=== PATIENT | male | born 1995 | race Caucasian/White ===

== ENCOUNTER 2017-01-27 02:44 | Inpatient (IN) | payer BC ==
[~2017-01-27] VITALS: Ht 177.8 cm; Wt 79.0 kg
[~2017-01-27 02:44] MED LIST: LEVO1TAB35 PO
[2017-01-27] MEDS ORDERED: VANCOMYCIN INJ 2,000 MG in SODIUM CHLORIDE 0.9% 500ML 500 ML IV STA (03:02)
[2017-01-27] MEDS ORDERED: SODIUM CHLORIDE 0.9% 1000ML 2,000 ML IV STA (03:02)
[2017-01-27] MEDS ORDERED: CEFTRIAXONE SOD INJ 1 GM ADDVIAL IV STA (03:05)
[2017-01-27] MEDS ORDERED: ACETAMINOPHEN 500 MG TAB PO STA (03:16)
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
[2017-01-27 03:27] LABS: HEMATOCRIT 41.7 % (42-52); MEAN CELL VOLUME 88.3 fL (80-100); MEAN CORPUSCULAR HEMOGLOBIN 30.5 pg (25-34); MEAN CORPUSCULAR HGB CONC 34.5 g/dl (32-36); MEAN PLATELET VOLUME 10.1 fL (7.4-10.4); PLATELET COUNT 406 K/uL (130-400); RED BLOOD COUNT 4.72 M/uL (4.7-6.1); WHITE BLOOD COUNT 20.18 K/uL (4.8-10.8)
[2017-01-27 03:34] LABS: INR 1.1 (0.9-1.1); PROTHROMBIN TIME (PATIENT) 11.5 SECONDS (9.0-12.0)
[2017-01-27 03:44] LABS: BUN/CREATININE RATIO 11.3 (10-20); CALCIUM 8.8 mg/dl (8.5-10.1); CREATININE 0.94 mg/dl (0.60-1.40); POTASSIUM 3.6 mmol/L (3.5-5.1)
[2017-01-27 03:47] LABS: C-REACTIVE PROTEIN 8.74 mg/dl (0-0.29)
[2017-01-27 03:54] LABS: BASO % 0.2 %; BASO ABS # 0.04 K/uL (0-0.2); COMPLETE YES; EOS % 0.2 %; IG% 0.5 %; LYMPH % 10.3 %; LYMPH ABS # 2.08 K/uL (1.2-3.4); MONO % 17.1 %; NEUT % 71.7 %
[2017-01-27] MEDS ORDERED: MAGNESIUM HYDROXIDE SUSP 30 ML UDC PO PRN (04:00)
[2017-01-27] MEDS ORDERED: ONDANSETRON INJ 2 MG/ML 2 ML VIAL IV PRN (04:00)
[2017-01-27] MEDS ORDERED: ALUMINUM/MAGNESIUM/SIMETH (MAALOX MAX) 30 ML UDC PO PRN (04:00)
[2017-01-27] MEDS ORDERED: ZOLPIDEM TARTRATE 5 MG TAB PO PRN (04:00)
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
[2017-01-27 04:30] VITALS: BP 120/72; PULSE 107; TEMP 38; O2SAT 96; Ht 177.8 cm; Wt 79.0 kg
[2017-01-27] MEDS ORDERED: POLYETHYLENE (MIRALAX) 17 GM PACK PO PRN (05:30)
[2017-01-27] MEDS ORDERED: VANCOMYCIN CONSULT ACTIVE PRN (05:30)
[2017-01-27] MEDS: AZITHROMYCIN IV 500 MG in DEXTROSE 5% 250ML 250 ML IV SCH (05:38)
[2017-01-27] MEDS: HEPARIN SOD 5000 UNIT/0.5 ML CARP SQ SCH ×3 (05:39→21:54)
--- NOTE | 2017-01-27 07:24 | DIAGNOSTIC IMAGING REPORT ---
SINGLE VIEW CHEST CLINICAL HISTORY: Fever. Sepsis. FINDINGS: 2 AP, portable, upright chest radiographs are obtained. No prior studies are available for comparison at the time of dictation. The examination is degraded by portable technique and patient rotation. The cardiomediastinal silhouette is unremarkable. The lungs and pleural spaces are clear. No pneumothorax is seen. The bony thorax is grossly intact. IMPRESSION: No acute cardiopulmonary abnormality. Electronically signed by: Raphael Gardiner M.D. 01/27/2017 7:23 AM Dictated Date/Time: 01/27/2017 7:22 AM
[2017-01-27 07:26] VITALS: BP 111/67; PULSE 88; TEMP 36.7; O2SAT 97
[2017-01-27] MEDS ORDERED: INFLUENZA VIRUS QUAD VACCINE 0.5 ML SYR IM. ONE (08:00)
[2017-01-27] MEDS ORDERED: INFLUENZA ADMINISTRATION CHARGE ONE (08:00)
[2017-01-27 08:41] LABS: MEAN CELL VOLUME 88.1 fL (80-100); MEAN CORPUSCULAR HEMOGLOBIN 30.2 pg (25-34); MEAN CORPUSCULAR HGB CONC 34.3 g/dl (32-36); MEAN PLATELET VOLUME 9.6 fL (7.4-10.4); PLATELET COUNT 353 K/uL (130-400); WHITE BLOOD COUNT 16.58 K/uL (4.8-10.8)
[2017-01-27 09:00] LABS: BLOOD UREA NITROGEN 8 mg/dl (7-18); BUN/CREATININE RATIO 10.8 (10-20); CALCIUM 8.3 mg/dl (8.5-10.1); CARBON DIOXIDE 23 mmol/L (21-32); CHLORIDE 108 mmol/L (98-107); CREATININE 0.74 mg/dl (0.60-1.40); GLUCOSE 91 mg/dl (70-99); POTASSIUM 3.8 mmol/L (3.5-5.1); SODIUM 138 mmol/L (136-145)
[2017-01-27] MEDS ORDERED: VANCOMYCIN INJ 1,000 MG in SODIUM CHLORIDE 0.9% 250ML 250 ML IV SCH (09:00)
--- NOTE | 2017-01-27 09:12 | Pharmacy Progress Note ---
Pharmacy Antibiotic Consult Date of Service: Jan 27, 2017. Pharmacy Dosing Scope Pharmacy is consulted to initiate vancomycin IV dosing therapy, order appropriate labs and adjust drug dose/frequency. Subjective The patient is a 21 year old male admitted on Jan 27, 2017 at 03:48. Objective Height (Feet): 5 Height (Inches): 10.00 Weight (Kilograms): 79.000 Lab Results (24hrs): Test 01/27/17 03:14 01/27/17 03:17 01/27/17 03:52 01/27/17 08:24 Bedside Lactic Acid Venous 0.93 mmol/L (0.90-1.70) White Blood Count 20.18 K/uL (4.8-10.8) 16.58 K/uL (4.8-10.8) Red Blood Count 4.72 M/uL (4.7-6.1) 4.20 M/uL (4.7-6.1) Hemoglobin 14.4 g/dL (14.0-18.0) 12.7 g/dL (14.0-18.0) Hematocrit 41.7 % (42-52) 37.0 % (42-52) Mean Corpuscular Volume 88.3 fL (80-100) 88.1 fL (80-100) Mean Corpuscular Hemoglobin 30.5 pg (25-34) 30.2 pg (25-34) Mean Corpuscular Hemoglobin Concent 34.5 g/dl (32-36) 34.3 g/dl (32-36) Platelet Count 406 K/uL (130-400) 353 K/uL (130-400) Mean Platelet Volume 10.1 fL (7.4-10.4) 9.6 fL (7.4-10.4) Neutrophils (%) (Auto) 71.7 % Lymphocytes (%) (Auto) 10.3 % Monocytes (%) (Auto) 17.1 % Eosinophils (%) (Auto) 0.2 % Basophils (%) (Auto) 0.2 % Neutrophils # (Auto) 14.46 K/uL (1.4-6.5) Lymphocytes # (Auto) 2.08 K/uL (1.2-3.4) Monocytes # (Auto) 3.46 K/uL (0.11-0.59) Eosinophils # (Auto) 0.04 K/uL (0-0.5) Basophils # (Auto) 0.04 K/uL (0-0.2) RDW Standard Deviation 46.3 fL (36.4-46.3) 46.7 fL (36.4-46.3) RDW Coefficient of Variation 14.2 % (11.5-14.5) 14.5 % (11.5-14.5) Immature Granulocyte % (Auto) 0.5 % Immature Granulocyte # (Auto) 0.10 K/uL (0.00-0.02) Prothrombin Time 11.5 SECONDS (9.0-12.0) Prothromb Time International Ratio 1.1 (0.9-1.1) Sodium Level 134 mmol/L (136-145) 138 mmol/L (136-145) Potassium Level 3.6 mmol/L (3.5-5.1) 3.8 mmol/L (3.5-5.1) Chloride Level 102 mmol/L (98-107) 108 mmol/L (98-107) Carbon Dioxide Level 24 mmol/L (21-32) 23 mmol/L (21-32) Anion Gap 8.0 mmol/L (3-11) 7.0 mmol/L (3-11) Blood Urea Nitrogen 11 mg/dl (7-18) 8 mg/dl (7-18) Creatinine 0.94 mg/dl (0.60-1.40) 0.74 mg/dl (0.60-1.40) Est Creatinine Clear Calc Drug Dose 129.4 ml/min 164.4 ml/min Estimated GFR () 134.7 > 150.0 Estimated GFR (Non- 116.2 132.8 BUN/Creatinine Ratio 11.3 (10-20) 10.8 (10-20) Random Glucose 104 mg/dl (70-99) 91 mg/dl (70-99) Calcium Level 8.8 mg/dl (8.5-10.1) 8.3 mg/dl (8.5-10.1) Total Bilirubin 0.5 mg/dl (0.2-1) Direct Bilirubin 0.1 mg/dl (0-0.2) Aspartate Amino Transf (AST/SGOT) 16 U/L (15-37) Alanine Aminotransferase (ALT/SGPT) 22 U/L (12-78) Alkaline Phosphatase 146 U/L (45-117) C-Reactive Protein 8.74 mg/dl (0-0.29) Total Protein 8.4 gm/dl (6.4-8.2) Albumin 4.2 gm/dl (3.4-5.0) Procalcitonin 0.06 ng/ml (0-0.5) Influenza Type A Antigen Neg for Influ A (NEG) Influenza Type B Antigen Neg for Influ B (NEG) Magnesium Level 1.9 mg/dl (1.8-2.4) Monoscreen NEG (NEG) Micro Results: Item Value Date Time Blood Culture Received 01/27/17316 Blood Pending Blood Culture Received 01/27/17309 Blood Pending Assessment & Plan Pt admitted with worsening fever/chills and possible pneumonia. Had received about 2 days of levaquin prior to admission per H&P. Bc x 2 are pending. Vancomycin: * Pt received LD of vancomycin 2000 mg x 1 (~25 mg/kg) * Will start MD of vancomycin 1250 mg (~15 mg/kg) iv q 8 hrs to achieve an estimated trough ~15-20 mcg/ml (goal for pneumonia) * Estimated kinetics: t 1/2~7.9 hrs, ke~0.08 hr-1, CrCl ~129 ml/min; used max CrCl of 100 ml/min to calculate kinetics * Will plan to obtain a trough prior to the 1200 dose on 01/28 to ensure therapeutic Pharmacy will continue to follow and will adjust dose/frequency as necessary. Thank you
[2017-01-27] MEDS: VANCOMYCIN INJ 1,250 MG in SODIUM CHLORIDE 0.9% 250ML 250 ML IV SCH ×2 (12:15→19:50)
--- NOTE | 2017-01-27 13:17 | Family Medicine Progress Note ---
Progress Note Date of Service Jan 27, 2017. Subjective Pt evaluation today including: conversation w/ patient, physical exam, chart review, lab review, review of studies, review of inpatient medication list Pain: mild soar throat PO Intake: adequate Voiding: no voiding problems NO acute events overnight, Last fever was 4:30 Am at 38 degrees which has since resolved. Patient still reports ongoing nasal congestion byt denies SOB, CP, Abdominal pain, N/V, diarrhea. Pain controlled with tylenol Constitutional: + fever (resolved), No chills, No weakness ENT: + nasal symptoms, + problem reported (congestion) Respiratory: No cough, No sputum Cardiovascular: No chest pain, No palpitations Abdomen: No pain, No nausea, No vomiting, No diarrhea Male : No dysuria, No urinary frequency, No hematuria Heme: + swollen lymph nodes Skin: No rash, No itch, No new/changing skin lesions Medications Current Inpatient Medications Medications (Trade) Dose Ordered Sig/Juan Alberto Route Start Time Stop Time Status Last Admin Dose Admin Ceftriaxone Sodium 1 gm/ Dextrose 50 ml @ 100 mls/hr Q24H IV 01/28/17 06:00 02/04/17 05:59 Azithromycin 500 mg/Dextrose 255 ml @ 125 mls/hr DAILY@0800 IV 01/27/17 06:00 02/03/17 05:59 01/27/17 05:38 125 MLS/HR Heparin Sodium (Porcine) (Heparin Sq 5000 Unit/0.5ml) 5,000 unit Q8H SQ 01/27/17 06:00 02/26/17 05:59 01/27/17 05:39 5,000 UNIT Acetaminophen (Tylenol Tab) 650 mg Q4H PRN PO 01/27/17 04:00 02/26/17 03:59 Al Hydrox/Mg Hydrox/Simethicone (Maalox Max Susp) 15 ml Q4H PRN PO 01/27/17 04:00 02/26/17 03:59 Magnesium Hydroxide (Milk Of Magnesia Susp) 30 ml Q6H PRN PO 01/27/17 04:00 02/26/17 03:59 Polyethylene (Miralax Powder Packet) 17 gm DAILY PRN PO 01/27/17 05:30 02/26/17 05:29 Zolpidem Tartrate (Ambien Tab) 5 mg HSZ PRN PO 01/27/17 04:00 02/26/17 03:59 Ondansetron HCl (Zofran Inj) 4 mg Q6H PRN IV 01/27/17 04:00 02/26/17 03:59 Vancomycin HCl (Consult) 1 ea UD PRN N/A 01/27/17 05:30 02/26/17 05:29 Vancomycin HCl 1250 mg/Sodium Chloride 275 ml @ 125 mls/hr Q8H IV 01/27/17 12:00 02/03/17 11:59 01/27/17 19:50 125 MLS/HR Loratadine (Claritin Tab) 10 mg QAM PO 01/28/17 08:00 02/27/17 07:59 Dexamethasone Sodium Phosphate 2 mg/Syringe 0.5 ml @ 1 mls/min Q12@0200,1400 IV 01/27/17 14:15 02/26/17 14:14 01/27/17 14:23 1 MLS/MIN Menthol (Nice Ruby) 1 ruby PRN PRN PO 01/27/17 16:15 02/26/17 16:14 01/27/17 16:16 1 RUBY Objective Vital Signs Date Time Temp Pulse Resp B/P (MAP) Pulse Ox O2 Delivery O2 Flow Rate FiO2 01/27/17 16:00 Room Air 01/27/17 15:00 37.0 95 18 138/76 (96) 99 Room Air 01/27/17 10:00 Room Air 01/27/17 07:26 36.7 88 18 111/67 (82) 97 Room Air 01/27/17 04:30 38.0 107 18 120/72 96 Room Air 01/27/17 04:09 37.0 105 18 119/71 98 01/27/17 04:01 119/71 01/27/17 03:44 100 19 99 01/27/17 03:40 104 01/27/17 03:38 132/71 01/27/17 02:51 37.7 126 20 113/85 98 Room Air Physical Exam Notes: GENERAL: alert, well appearing, well nourished, no distress, non-toxic EYE EXAM: normal conjunctiva, PERRL and EOM's grossly intact OROPHARYNX: + erythema, kissing tonsils, lips, buccal mucosa, and tongue normal and mucous membranes are moist NECK: supple, no nuchal rigidity, Ant cervical lymphadenopathy, non-tender LUNGS: Clear to auscultation. Normal chest wall mechanics HEART: no murmurs, S1 normal and S2 normal ABDOMEN: abdomen soft, non-tender, normo-active bowel sounds, no masses, no rebound or guarding. SKIN: no rashes and no bruising UPPER EXTREMITIES: upper extremities are grossly normal. LOWER EXTREMITIES: No pitting edema. NEURO EXAM: Normal sensorium, cranial nerves II-XII grossly intact, normal speech, Laboratory Results Results Past 24 Hours Test 01/27/17 03:14 01/27/17 03:17 01/27/17 03:52 01/27/17 08:24 Range/Units Bedside Lactic Acid Venous 0.93 0.90-1.70 mmol/L White Blood Count 20.18 16.58 4.8-10.8 K/uL Red Blood Count 4.72 4.20 4.7-6.1 M/uL Hemoglobin 14.4 12.7 14.0-18.0 g/dL Hematocrit 41.7 37.0 42-52 % Mean Corpuscular Volume 88.3 88.1 80-100 fL Mean Corpuscular Hemoglobin 30.5 30.2 25-34 pg Mean Corpuscular Hemoglobin Concent 34.5 34.3 32-36 g/dl Platelet Count 406 353 130-400 K/uL Mean Platelet Volume 10.1 9.6 7.4-10.4 fL Neutrophils (%) (Auto) 71.7 % Lymphocytes (%) (Auto) 10.3 % Monocytes (%) (Auto) 17.1 % Eosinophils (%) (Auto) 0.2 % Basophils (%) (Auto) 0.2 % Neutrophils # (Auto) 14.46 1.4-6.5 K/uL Lymphocytes # (Auto) 2.08 1.2-3.4 K/uL Monocytes # (Auto) 3.46 0.11-0.59 K/uL Eosinophils # (Auto) 0.04 0-0.5 K/uL Basophils # (Auto) 0.04 0-0.2 K/uL RDW Standard Deviation 46.3 46.7 36.4-46.3 fL RDW Coefficient of Variation 14.2 14.5 11.5-14.5 % Immature Granulocyte % (Auto) 0.5 % Immature Granulocyte # (Auto) 0.10 0.00-0.02 K/uL Prothrombin Time 11.5 9.0-12.0 SECONDS Prothromb Time International Ratio 1.1 0.9-1.1 Sodium Level 134 138 136-145 mmol/L Potassium Level 3.6 3.8 3.5-5.1 mmol/L Chloride Level 102 108 98-107 mmol/L Carbon Dioxide Level 24 23 21-32 mmol/L Anion Gap 8.0 7.0 3-11 mmol/L Blood Urea Nitrogen 11 8 7-18 mg/dl Creatinine 0.94 0.74 0.60-1.40 mg/dl Est Creatinine Clear Calc Drug Dose 129.4 164.4 ml/min Estimated GFR () 134.7 > 150.0 Estimated GFR (Non- 116.2 132.8 BUN/Creatinine Ratio 11.3 10.8 10-20 Random Glucose 104 91 70-99 mg/dl Calcium Level 8.8 8.3 8.5-10.1 mg/dl Total Bilirubin 0.5 0.2-1 mg/dl Direct Bilirubin 0.1 0-0.2 mg/dl Aspartate Amino Transf (AST/SGOT) 16 15-37 U/L Alanine Aminotransferase (ALT/SGPT) 22 12-78 U/L Alkaline Phosphatase 146 45-117 U/L C-Reactive Protein 8.74 0-0.29 mg/dl Total Protein 8.4 6.4-8.2 gm/dl Albumin 4.2 3.4-5.0 gm/dl Procalcitonin 0.06 0-0.5 ng/ml Influenza Type A Antigen Neg for Influ A NEG Influenza Type B Antigen Neg for Influ B NEG Magnesium Level 1.9 1.8-2.4 mg/dl Monoscreen NEG NEG Test 01/27/17 14:10 Range/Units Urine Color YELLOW Urine Appearance CLEAR CLEAR Urine pH 7.0 4.5-7.5 Urine Specific [place] 1.009 1.000-1.030 Urine Protein NEG NEG Urine Glucose (UA) NEG NEG Urine Ketones NEG NEG Urine Occult Blood 2+ NEG Urine Nitrite NEG NEG Urine Bilirubin NEG NEG Urine Urobilinogen NEG NEG Urine Leukocyte Esterase NEG NEG Urine WBC (Auto) 0 0-5 /hpf Urine RBC (Auto) 10-30 0-4 /hpf Urine Hyaline Casts (Auto) 0 0-5 /lpf Urine Epithelial Cells (Auto) 0-5 0-5 /lpf Urine Bacteria (Auto) NEG NEG Microbiology Results 01/27/17 Blood Culture, Received Pending 01/27/17 Blood Culture, Received Pending Assessment and Plan 21 yo M w/ 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 Sepsis in the setting Upper respiratory infection: s/p failure of outpatient treatment with Levaquin - URI : likely viral although bacterial sinusitis cannot be ruled out. Given asplenia, patient more prone to infection. Flu considered but swab negative - Vitals stabilized , afebrile - Cxr has no evidence of PNA, - Flu swab negative, - started on broad spectrum abx (Vanc, Ceftriaxone, Azithromycin), Consider D/C' ing pending blood cx's - F/u Blood cultures Nausea -PRN Zofran Continued [facility] stay due to: multiple IV medications needed Discharge planning: home Resident Tracking Resident Involvement: Resident Care Provided Care Provided: Adult Hospital Medicine
[2017-01-27] MEDS: DEXAMETHASONE INJ 2 MG in SYRINGE 0 ML IV SCH (14:23)
[2017-01-27 14:26] LABS: URINE APPEARANCE CLEAR (CLEAR); URINE BILIRUBIN NEG (NEG); URINE COLOR YELLOW; URINE EPITHELIAL CELL AUTO 0-5 /lpf (0-5); URINE NITRITE NEG (NEG); URINE SPECIFIC GRAVITY 1.009 (1.000-1.030); UROBILINOGEN NEG (NEG); ZZUR CULT IF INDIC CLEAN CATCH NO
[2017-01-27 14:28] LABS: MANUAL MICROSCOPIC REQUIRED? NO; REVIEW REQ? NO
[2017-01-27] MEDS ORDERED: LORATADINE 10 MG TAB PO ONE (14:30)
[2017-01-27 15:00] VITALS: BP 138/76; PULSE 95; TEMP 37; O2SAT 99
[2017-01-27] MEDS ORDERED: COUGH DROP (SUGAR FREE) LOZ 24 LOZ/1 BOX ONE (16:15)
[2017-01-27] MEDS ORDERED: COUGH DROP (SUGAR FREE) LOZ 24 LOZ/1 BOX PO PRN (16:15)
[2017-01-28 00:17] VITALS: BP 124/70; PULSE 91; TEMP 36.7; O2SAT 92
[2017-01-28] MEDS ORDERED: NURSING VERBAL MED ORDER ONE (01:00)
[2017-01-28] MEDS ORDERED: CHLORASEPTIC 1.4% SOLN 180 ML BTL MT PRN (01:15)
[2017-01-28] MEDS: DEXAMETHASONE INJ 2 MG in SYRINGE 0 ML IV SCH (01:34)
[2017-01-28] MEDS: VANCOMYCIN INJ 1,250 MG in SODIUM CHLORIDE 0.9% 250ML 250 ML IV SCH (04:42)
[2017-01-28] MEDS: CEFTRIAXONE SOD INJ 1 GM in DEXTROSE 5% ADD-VANTAGE 50ML 50 ML IV SCH (06:35)
[2017-01-28] MEDS: HEPARIN SOD 5000 UNIT/0.5 ML CARP SQ SCH ×3 (06:36→21:44)
[2017-01-28 07:06] LABS: BLOOD UREA NITROGEN 9 mg/dl (7-18); CALCIUM 8.4 mg/dl (8.5-10.1); CARBON DIOXIDE 24 mmol/L (21-32); CHLORIDE 110 mmol/L (98-107); CREATININE 0.59 mg/dl (0.60-1.40); GLUCOSE 115 mg/dl (70-99); MAGNESIUM 2.2 mg/dl (1.8-2.4); PHOSPHORUS 2.5 mg/dl (2.5-4.9); POTASSIUM 3.9 mmol/L (3.5-5.1); SODIUM 142 mmol/L (136-145)
[2017-01-28 07:15] VITALS: BP 107/64; PULSE 73; TEMP 36.3; O2SAT 98
--- NOTE | 2017-01-28 07:30 | Family Medicine Progress Note ---
Progress Note Date of Service Jan 28, 2017. Subjective Pt evaluation today including: conversation w/ patient, conversation w/ family , physical exam, chart review, lab review, review of studies, review of inpatient medication list Pain: minimal PO Intake: adequate Voiding: no voiding problems No acute events overnight, He reports minimal throat pain, non-productive cough , sweating. He denies CP, SOB, abdominal pain, N/V, diarrhea. Patient has notr had bowel movement since arrival. Constitutional: No fever, No chills, No weakness ENT: + nasal symptoms, + sore throat, No trouble swallowing Respiratory: No cough, No shortness of breath, No hemoptysis Cardiovascular: No chest pain, No palpitations Abdomen: + constipation, No pain, No nausea, No vomiting, No diarrhea Male : No dysuria, No urinary frequency, No hematuria Skin: No rash, No itch Medications Current Inpatient Medications Medications (Trade) Dose Ordered Sig/Juan Alberto Route Start Time Stop Time Status Last Admin Dose Admin Ceftriaxone Sodium 1 gm/ Dextrose 50 ml @ 100 mls/hr Q24H IV 01/28/17 06:00 02/04/17 05:59 01/28/17 06:35 100 MLS/HR Azithromycin 500 mg/Dextrose 255 ml @ 125 mls/hr DAILY@0800 IV 01/27/17 06:00 02/03/17 05:59 01/28/17 07:59 125 MLS/HR Heparin Sodium (Porcine) (Heparin Sq 5000 Unit/0.5ml) 5,000 unit Q8H SQ 01/27/17 06:00 02/26/17 05:59 01/27/17 21:54 5,000 UNIT Acetaminophen (Tylenol Tab) 650 mg Q4H PRN PO 01/27/17 04:00 02/26/17 03:59 Al Hydrox/Mg Hydrox/Simethicone (Maalox Max Susp) 15 ml Q4H PRN PO 01/27/17 04:00 02/26/17 03:59 Magnesium Hydroxide (Milk Of Magnesia Susp) 30 ml Q6H PRN PO 01/27/17 04:00 02/26/17 03:59 Polyethylene (Miralax Powder Packet) 17 gm DAILY PRN PO 01/27/17 05:30 02/26/17 05:29 Zolpidem Tartrate (Ambien Tab) 5 mg HSZ PRN PO 01/27/17 04:00 02/26/17 03:59 01/28/17 01:33 5 MG Ondansetron HCl (Zofran Inj) 4 mg Q6H PRN IV 01/27/17 04:00 02/26/17 03:59 Vancomycin HCl (Consult) 1 ea UD PRN N/A 01/27/17 05:30 02/26/17 05:29 Loratadine (Claritin Tab) 10 mg QAM PO 01/28/17 08:00 02/27/17 07:59 01/28/17 08:02 10 MG Menthol (Nice Karen) 1 karen PRN PRN PO 01/27/17 16:15 02/26/17 16:14 01/27/17 16:16 1 KAREN Phenol (Chloraseptic 1.4% [place]) 1 sprays Q3H PRN MT 01/28/17 01:15 02/27/17 01:14 01/28/17 01:35 1 SPRAYS Prednisone (PredniSONE TAB) 20 mg Q24H PO 01/29/17 09:00 02/28/17 08:59 Vancomycin HCl 2250 mg/Sodium Chloride 545 ml @ 200 mls/hr Q8H IV 01/28/17 14:00 02/03/17 11:59 01/28/17 14:39 200 MLS/HR Objective Vital Signs Date Time Temp Pulse Resp B/P (MAP) Pulse Ox O2 Delivery O2 Flow Rate FiO2 01/28/17 15:02 36.4 78 18 119/66 (83) 100 Room Air 01/28/17 08:00 98 Room Air 01/28/17 07:15 36.3 73 20 107/64 (78) 98 Room Air 01/28/17 01:45 Room Air 01/28/17 00:17 36.7 91 20 124/70 (88) 92 Room Air Physical Exam General Appearance: WD/WN, no apparent distress Eyes: normal inspection, PERRL, EOMI ENT: + pertinent finding (jay tonsilar enlargement , no exdates) Neck: supple, trachea midline, + adenopathy present Respiratory/Chest: chest non-tender, lungs clear, normal breath sounds, no respiratory distress Cardiovascular: regular rate, rhythm, no edema, no murmur Abdomen: normal bowel sounds, non tender, soft, no organomegaly Extremities: normal inspection, no pedal edema, no calf tenderness Neurologic/Psychiatric: alert, normal mood/affect, oriented x 3 Skin: normal color, warm/dry, no rash Laboratory Results Results Past 24 Hours Test 01/28/17 05:11 01/28/17 05:17 01/28/17 11:17 Range/Units Sodium Level 142 136-145 mmol/L Potassium Level 3.9 3.5-5.1 mmol/L Chloride Level 110 98-107 mmol/L Carbon Dioxide Level 24 21-32 mmol/L Anion Gap 8.0 3-11 mmol/L Blood Urea Nitrogen 9 7-18 mg/dl Creatinine 0.59 0.60-1.40 mg/dl Est Creatinine Clear Calc Drug Dose 206.2 ml/min Estimated GFR () > 150.0 Estimated GFR (Non- 145.7 BUN/Creatinine Ratio 15.0 10-20 Random Glucose 115 70-99 mg/dl Calcium Level 8.4 8.5-10.1 mg/dl Phosphorus Level 2.5 2.5-4.9 mg/dl Magnesium Level 2.2 1.8-2.4 mg/dl White Blood Count 14.32 4.8-10.8 K/uL Red Blood Count 4.10 4.7-6.1 M/uL Hemoglobin 12.4 14.0-18.0 g/dL Hematocrit 36.4 42-52 % Mean Corpuscular Volume 88.8 80-100 fL Mean Corpuscular Hemoglobin 30.2 25-34 pg Mean Corpuscular Hemoglobin Concent 34.1 32-36 g/dl Platelet Count 355 130-400 K/uL Mean Platelet Volume 10.8 7.4-10.4 fL Neutrophils (%) (Auto) 83.3 % Lymphocytes (%) (Auto) 7.8 % Monocytes (%) (Auto) 8.6 % Eosinophils (%) (Auto) 0.1 % Basophils (%) (Auto) 0.1 % Neutrophils # (Auto) 11.93 1.4-6.5 K/uL Lymphocytes # (Auto) 1.12 1.2-3.4 K/uL Monocytes # (Auto) 1.23 0.11-0.59 K/uL Eosinophils # (Auto) 0.01 0-0.5 K/uL Basophils # (Auto) 0.01 0-0.2 K/uL RDW Standard Deviation 47.4 36.4-46.3 fL RDW Coefficient of Variation 14.8 11.5-14.5 % Immature Granulocyte % (Auto) 0.1 % Immature Granulocyte # (Auto) 0.02 0.00-0.02 K/uL Vancomycin Level Trough 6.5 SEE COMMENT mcg/ml Assessment and Plan 21 yo M w/ 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 Sepsis in the setting Upper respiratory infection: s/p failure of outpatient treatment with Levaquin - URI : likely viral although bacterial sinusitis cannot be ruled out. Given asplenia, patient more prone to infection. Flu considered but swab negative - Vitals stabilized , afebrile - CXR has no evidence of PNA, - Flu swab negative, -Continue broad spectrum abx (Vanc, Ceftriaxone, Azithromycin), -Consider D/C'ing IV abx pending blood cx's and subsequent conversion to oral - F/u Blood cultures at 48 hrs -U/A 2+ occult blood, otherwise unremarkable, no urinary symptoms Constipation - Miralax prn Nausea -PRN Zofran Continued [facility] stay due to: multiple IV medications needed Discharge planning: home Resident Tracking Resident Involvement: Resident Care Provided Care Provided: Adult Hospital Medicine
[2017-01-28] MEDS: AZITHROMYCIN IV 500 MG in DEXTROSE 5% 250ML 250 ML IV SCH (07:59)
[2017-01-28 08:00] VITALS: O2SAT 98
[2017-01-28] MEDS: LORATADINE 10 MG TAB PO SCH (08:02)
[2017-01-28 08:56] LABS: BASO % 0.1 %; BASO ABS # 0.01 K/uL (0-0.2); COMPLETE YES; EOS % 0.1 %; HEMATOCRIT 36.4 % (42-52); IG% 0.1 %; LYMPH % 7.8 %; LYMPH ABS # 1.12 K/uL (1.2-3.4); MEAN CELL VOLUME 88.8 fL (80-100); MEAN CORPUSCULAR HEMOGLOBIN 30.2 pg (25-34); MEAN CORPUSCULAR HGB CONC 34.1 g/dl (32-36); MEAN PLATELET VOLUME 10.8 fL (7.4-10.4); MONO % 8.6 %; NEUT % 83.3 %; PLATELET COUNT 355 K/uL (130-400); WHITE BLOOD COUNT 14.32 K/uL (4.8-10.8)
[2017-01-28] MEDS ORDERED: POLYETHYLENE (MIRALAX) 17 GM PACK PO SCH (10:15)
[2017-01-28] MEDS ORDERED: VANCOMYCIN TROUGH ONE (11:30)
[2017-01-28] MEDS: VANCOMYCIN INJ 2,250 MG in SODIUM CHLORIDE 0.9% 500ML 500 ML IV SCH ×2 (14:39→21:47)
[2017-01-28 15:02] VITALS: BP 119/66; PULSE 78; TEMP 36.4; O2SAT 100
--- NOTE | 2017-01-28 15:16 | Pharmacy Progress Note ---
Pharmacy Abx Dose Short Note Date of Service Jan 28, 2017. Assessment & Plan Assessment 21 year old asplenic male receiving Vancomycin, Azithromycin and Rocephin for treatment of possible pneumonia. Day # 3 of antimicrobial therapy. Item Value Date Time Vancomycin Level Trough 6.5 mcg/ml 01/28/17 1117 Pharmacy consulted to dose vanco only. Based on subtherapeutic vanco trough level of 6.5 mcg/mL, plan to increase dose to 28mg/kg. Trough level was drawn prior to the 4th mainenance dose. Administration times checked and all prior doses are documented as given. A higher than traditional dose is being used due to his good renal function. Will check trough prior to the fourth maintenance dose when drug is at steady state. Plan Vancomycin * Increase dose to 2.25gm IV q 8 hours * Trough level ordered for 01/29 @ 1330 Pharmacy will continue to follow and will adjust dose/frequency as necessary. Thank you.
[2017-01-28 16:00] VITALS: O2SAT 97
[2017-01-28] MEDS: ACETAMINOPHEN 325 MG TAB PO PRN (19:59)
[2017-01-28 23:27] VITALS: BP 127/69; PULSE 65; TEMP 37.4; O2SAT 96
[2017-01-29] MEDS: CEFTRIAXONE SOD INJ 1 GM in DEXTROSE 5% ADD-VANTAGE 50ML 50 ML IV SCH (05:17)
[2017-01-29 05:23] VITALS: TEMP 39.6
[2017-01-29] MEDS: ACETAMINOPHEN 325 MG TAB PO PRN (05:23)
[2017-01-29] MEDS: HEPARIN SOD 5000 UNIT/0.5 ML CARP SQ SCH ×3 (05:59→21:21)
[2017-01-29] MEDS: VANCOMYCIN INJ 2,250 MG in SODIUM CHLORIDE 0.9% 500ML 500 ML IV SCH ×3 (06:24→22:16)
[2017-01-29 06:37] LABS: CREATININE 0.82 mg/dl (0.60-1.40)
[2017-01-29 07:23] VITALS: BP 104/60; PULSE 92; TEMP 37; O2SAT 97
[2017-01-29 08:00] VITALS: O2SAT 96
[2017-01-29] MEDS: AZITHROMYCIN 250 MG TAB PO SCH (08:14)
[2017-01-29] MEDS: LORATADINE 10 MG TAB PO SCH (08:14)
[2017-01-29 08:36] LABS: BASO % 0.1 %; BASO ABS # 0.02 K/uL (0-0.2); COMPLETE YES; EOS % 0.1 %; HEMATOCRIT 37.5 % (42-52); IG% 0.3 %; LYMPH % 15.1 %; LYMPH ABS # 2.38 K/uL (1.2-3.4); MEAN CORPUSCULAR HEMOGLOBIN 29.6 pg (25-34); MEAN CORPUSCULAR HGB CONC 33.6 g/dl (32-36); MEAN PLATELET VOLUME 10.6 fL (7.4-10.4); MONO % 14.3 %; NEUT % 70.1 %; PLATELET COUNT 384 K/uL (130-400); RED BLOOD COUNT 4.26 M/uL (4.7-6.1)
[2017-01-29] MEDS ORDERED: IBUPROFEN 200 MG TAB PO STA (08:55)
--- NOTE | 2017-01-29 10:09 | Progress Note ---
Progress Note Date of Service Jan 29, 2017. Progress Note ID Consult Dictated #[id number] A/P: 1. Fever/URI/asplenia -continue abx, follow cultures -Suggest ct sinuses -Will follow, thank you
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
--- NOTE | 2017-01-29 12:26 | DIAGNOSTIC IMAGING REPORT ---
SINUSES-MAXILLOFACIAL W/O CT DOSE: 584.97 mGy.cm HISTORY: Sinus pain. FINDINGS: Mucous retention cyst base right maxillary sinus. Moderate mucosal thickening ethmoid sinuses. Frontal sinuses are considered clear. Sphenoid sinuses show minimal and/or only a trace of mucosal thickening. Moderate hypertrophic change of the right nasal turbinates. The ostiomeatal units show patency on the right and soft tissue occlusion in the left. No evidence for bony destructive process. TECHNIQUE: Multiaxial CT images of the paranasal sinuses were performed and reformatted in the coronal plane without the use of contrast. A dose lowering technique was utilized adhering to the principles of ALARA. COMPARISON: None. IMPRESSION: 1. Soft tissue occlusion left ostiomeatal unit. 2. Moderate hypertrophic change of the right nasal turbinates with moderate mucosal thickening of the ethmoid sinuses bilaterally. 3. Mucous retention cyst right maxillary sinus. The above report was generated using voice recognition software. It may contain grammatical, syntax or spelling errors. Electronically signed by: Chucho Lyons M.D. 01/29/2017 12:25 PM Dictated Date/Time: 01/29/2017 12:23 PM
[2017-01-29] MEDS ORDERED: VANCOMYCIN TROUGH ONE (13:30)
--- NOTE | 2017-01-29 14:28 | Pharmacy Progress Note ---
Pharmacy Abx Dose Short Note Date of Service Jan 29, 2017. Assessment & Plan Assessment 21 year old male receiving Vancomycin, Rocephin and Zithromax for treatment of possible pneumonia. Day # 3 of antimicrobial therapy. Pharmacy is consulted on vanc only. Item Value Date Time Vancomycin Level Trough 14.1 mcg/ml 01/29/17 1314 Vancomycin trough level of 14.1 mcg/mL is subtherapeutic. However he is currently being dosed at 28mg/kg and the trough is expected to rise. Goal trough for pneumonia is 15-20 mcg/mL. Blood cultures from 01/27 have no growth to date. ID would like to continue empiric therapy for now. Suspects sinusitis. Plan Vancomycin * Continue dose of 2250 mg IV every 8 hours * Trough level ordered for: 01/30 @ 1330. Pharmacy will continue to follow and will adjust dose/frequency as necessary. Thank you.
[2017-01-29 15:12] VITALS: BP 119/81; PULSE 85; TEMP 37.2; O2SAT 96
--- NOTE | 2017-01-29 15:15 | Family Medicine Progress Note ---
Progress Note Date of Service Jan 29, 2017. Subjective Pt evaluation today including: conversation w/ patient, conversation w/ family , physical exam, chart review, lab review, review of studies, review of inpatient medication list Pain: soar throat PO Intake: adequate Voiding: no voiding problems Patient spiked a fever this morning around 5:30 am up to 39.5. Patient reports continued soar throat malaise, non-productive cough and nasal congestion. He denies chest pain, abdominal pain, N/V. Constipation resolved. He reports multiple Bowel movement as of yesterdta Additional Comments: Constitutional: +fever, No chills, No weakness ENT: + nasal symptoms, + sore throat, No trouble swallowing Respiratory: No cough, No shortness of breath, No hemoptysis Cardiovascular: No chest pain, No palpitations Abdomen: No constipation, No pain, No nausea, No vomiting, No diarrhea Male : No dysuria, No urinary frequency, No hematuria Skin: No rash, No itch Medications Current Inpatient Medications Medications (Trade) Dose Ordered Sig/Juan Alberto Route Start Time Stop Time Status Last Admin Dose Admin Ceftriaxone Sodium 1 gm/ Dextrose 50 ml @ 100 mls/hr Q24H IV 01/28/17 06:00 02/04/17 05:59 01/29/17 05:17 100 MLS/HR Heparin Sodium (Porcine) (Heparin Sq 5000 Unit/0.5ml) 5,000 unit Q8H SQ 01/27/17 06:00 02/26/17 05:59 01/27/17 21:54 5,000 UNIT Acetaminophen (Tylenol Tab) 650 mg Q4H PRN PO 01/27/17 04:00 02/26/17 03:59 01/29/17 05:23 650 MG Al Hydrox/Mg Hydrox/Simethicone (Maalox Max Susp) 15 ml Q4H PRN PO 01/27/17 04:00 02/26/17 03:59 Magnesium Hydroxide (Milk Of Magnesia Susp) 30 ml Q6H PRN PO 01/27/17 04:00 02/26/17 03:59 Polyethylene (Miralax Powder Packet) 17 gm DAILY PRN PO 01/27/17 05:30 02/26/17 05:29 Zolpidem Tartrate (Ambien Tab) 5 mg HSZ PRN PO 01/27/17 04:00 02/26/17 03:59 01/28/17 01:33 5 MG Ondansetron HCl (Zofran Inj) 4 mg Q6H PRN IV 01/27/17 04:00 02/26/17 03:59 Vancomycin HCl (Consult) 1 ea UD PRN N/A 01/27/17 05:30 02/26/17 05:29 Loratadine (Claritin Tab) 10 mg QAM PO 01/28/17 08:00 02/27/17 07:59 01/29/17 08:14 10 MG Menthol (Nice Ruby) 1 ruby PRN PRN PO 01/27/17 16:15 02/26/17 16:14 01/27/17 16:16 1 RUBY Phenol (Chloraseptic 1.4% [place]) 1 sprays Q3H PRN MT 01/28/17 01:15 02/27/17 01:14 01/28/17 01:35 1 SPRAYS Prednisone (PredniSONE TAB) 20 mg Q24H PO 01/29/17 09:00 02/28/17 08:59 01/29/17 08:14 20 MG Vancomycin HCl 2250 mg/Sodium Chloride 545 ml @ 200 mls/hr Q8H IV 01/28/17 14:00 02/03/17 11:59 01/29/17 14:38 200 MLS/HR Azithromycin (Zithromax Tab) 500 mg QAM PO 01/29/17 08:00 02/03/17 07:59 01/29/17 08:14 500 MG Objective Vital Signs Date Time Temp Pulse Resp B/P (MAP) Pulse Ox O2 Delivery O2 Flow Rate FiO2 01/29/17 16:00 96 Room Air 01/29/17 15:12 37.2 85 18 119/81 (94) 96 Room Air 01/29/17 08:00 96 Room Air 01/29/17 07:23 37.0 92 18 104/60 (75) 97 01/29/17 05:23 39.6 01/29/17 00:00 Room Air 01/28/17 23:27 37.4 65 20 127/69 (88) 96 Room Air Physical Exam Notes: General Appearance: WD/WN, no apparent distress Eyes: normal inspection, PERRL, EOMI ENT: + pertinent finding (Kissing tonsils , no exdates) Neck: supple, trachea midline, + adenopathy present Respiratory/Chest: chest non-tender, lungs clear, normal breath sounds, no respiratory distress Cardiovascular: regular rate, rhythm, no edema, no murmur Abdomen: normal bowel sounds, non tender, soft, no organomegaly Extremities: normal inspection, no pedal edema, no calf tenderness Neurologic/Psychiatric: alert, normal mood/affect, oriented x 3 Skin: normal color, warm/dry, no rash Laboratory Results Results Past 24 Hours Test 01/29/17 05:21 01/29/17 13:14 Range/Units White Blood Count 15.80 4.8-10.8 K/uL Red Blood Count 4.26 4.7-6.1 M/uL Hemoglobin 12.6 14.0-18.0 g/dL Hematocrit 37.5 42-52 % Mean Corpuscular Volume 88.0 80-100 fL Mean Corpuscular Hemoglobin 29.6 25-34 pg Mean Corpuscular Hemoglobin Concent 33.6 32-36 g/dl Platelet Count 384 130-400 K/uL Mean Platelet Volume 10.6 7.4-10.4 fL Neutrophils (%) (Auto) 70.1 % Lymphocytes (%) (Auto) 15.1 % Monocytes (%) (Auto) 14.3 % Eosinophils (%) (Auto) 0.1 % Basophils (%) (Auto) 0.1 % Neutrophils # (Auto) 11.08 1.4-6.5 K/uL Lymphocytes # (Auto) 2.38 1.2-3.4 K/uL Monocytes # (Auto) 2.26 0.11-0.59 K/uL Eosinophils # (Auto) 0.01 0-0.5 K/uL Basophils # (Auto) 0.02 0-0.2 K/uL RDW Standard Deviation 47.0 36.4-46.3 fL RDW Coefficient of Variation 14.6 11.5-14.5 % Immature Granulocyte % (Auto) 0.3 % Immature Granulocyte # (Auto) 0.05 0.00-0.02 K/uL Creatinine 0.82 0.60-1.40 mg/dl Est Creatinine Clear Calc Drug Dose 148.4 ml/min Estimated GFR () 147.5 Estimated GFR (Non- 127.3 Vancomycin Level Trough 14.1 SEE COMMENT mcg/ml Assessment and Plan 21 yo M w/ 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 Sepsis in the setting Upper respiratory infection/Tonsillitis : s/p failure of outpatient treatment with Levaquin - URI /Tonsilliths : likely viral although bacterial sinusitis was considered. Given asplenia, patient more prone to infection. Flu considered but swab negative - CXR has no evidence of PNA, - Flu swab negative, -Continue broad spectrum abx (Vanc, Ceftriaxone, Azithromycin), -Consider D/C'ing IV abx pending blood cx's and subsequent conversion to oral -recurrence of fever (01/29) Blood cx's NGTD -ID consulted, recommended continued empiric abx. for suspected bacterial sinusitis CT scan of Sinuses (01/29) not consistent with bacterial sinusitis -ENT consulted Constipation - Miralax prn Nausea -PRN Zofran Continued [facility] stay due to: fever, abnormal vital signs, multiple IV medications needed Discharge planning: home Resident Tracking Resident Involvement: Resident Care Provided Care Provided: Adult Hospital Medicine
[2017-01-29 16:00] VITALS: O2SAT 96
[2017-01-29 23:17] VITALS: BP 132/68; PULSE 86; TEMP 38.7; O2SAT 99
[2017-01-30] VITALS: O2SAT 96
[2017-01-30] MEDS: CEFTRIAXONE SOD INJ 1 GM in DEXTROSE 5% ADD-VANTAGE 50ML 50 ML IV SCH (05:53)
[2017-01-30] MEDS: HEPARIN SOD 5000 UNIT/0.5 ML CARP SQ SCH ×2 (06:44→14:00)
[2017-01-30] MEDS: VANCOMYCIN INJ 2,250 MG in SODIUM CHLORIDE 0.9% 500ML 500 ML IV SCH (06:45)
[2017-01-30 07:17] LABS: CREATININE 0.64 mg/dl (0.60-1.40)
[2017-01-30 07:48] LABS: HEMATOCRIT 37.4 % (42-52); MEAN CELL VOLUME 87.6 fL (80-100); MEAN CORPUSCULAR HGB CONC 34.2 g/dl (32-36); MEAN PLATELET VOLUME 10.4 fL (7.4-10.4); PLATELET COUNT 423 K/uL (130-400); RED BLOOD COUNT 4.27 M/uL (4.7-6.1); WHITE BLOOD COUNT 15.67 K/uL (4.8-10.8)
[2017-01-30 07:49] VITALS: BP 115/63; PULSE 85; TEMP 36.9; O2SAT 97
[2017-01-30 08:00] VITALS: O2SAT 96
[2017-01-30 08:30] LABS: ACANTHOCYTES 1+; BASO % 0.4 %; BASO ABS # 0.07 K/uL (0-0.2); COMPLETE YES; EOS % 0.4 %; HOWELL-JOLLY BODIES 1+; IG% 0.3 %; LYMPH % 25.3 %; LYMPH ABS # 3.97 K/uL (1.2-3.4); MONO % 22.6 %; SCHISTOCYTES 1+
[2017-01-30] MEDS: LORATADINE 10 MG TAB PO SCH (09:15)
[2017-01-30] MEDS: AZITHROMYCIN 250 MG TAB PO SCH (09:15)
--- NOTE | 2017-01-30 10:36 | Progress Note ---
Subjective Date of Service: Jan 30, 2017. Subjective Pt evaluation today including: conversation w/ patient, physical exam, chart review, lab review pt feeling better, c/o occan dry cough, fevers improving, tolerating abx. blood cultures negative, remains on steroids. able to eat sinus ct negative, ent consulted. no neck pain. no fevers currently. spoke with primary, tonsillar hypertrophy, exudate noted. remaining ros reviewed and are negative. Problem List Medical Problems: (1) Sepsis Status: Acute Objective Vital Signs Date Time Temp Pulse Resp B/P (MAP) Pulse Ox O2 Delivery O2 Flow Rate FiO2 01/30/17 08:00 96 Room Air 01/30/17 07:49 36.9 85 22 115/63 (80) 97 Room Air 01/30/17 00:00 96 Room Air 01/29/17 23:17 38.7 86 20 132/68 (89) 99 Room Air 01/29/17 16:00 96 Room Air 01/29/17 15:12 37.2 85 18 119/81 (94) 96 Room Air Physical Exam General Appearance: WD/WN, no apparent distress Eyes: normal inspection, EOMI ENT: + muffled/hoarse voice Neck: supple, no adenopathy Respiratory/Chest: lungs clear, normal breath sounds, no respiratory distress Cardiovascular: regular rate, rhythm, no edema Abdomen: non tender, soft Extremities: non-tender, no pedal edema Neurologic/Psychiatric: alert, oriented x 3 Skin: normal color, no rash Laboratory Results Item Value Date Time Blood Culture - Preliminary Resulted 01/27/17316 Blood NO GROWTH TO DATE. Blood Culture - Preliminary Resulted 01/27/17 031 Blood NO GROWTH TO DATE. Last 24 Hours Test 01/29/17 13:14 01/30/17 06:04 Vancomycin Level Trough 14.1 mcg/ml White Blood Count 15.67 K/uL Red Blood Count 4.27 M/uL Hemoglobin 12.8 g/dL Hematocrit 37.4 % Mean Corpuscular Volume 87.6 fL Mean Corpuscular Hemoglobin 30.0 pg Mean Corpuscular Hemoglobin Concent 34.2 g/dl Platelet Count 423 K/uL Mean Platelet Volume 10.4 fL Neutrophils (%) (Auto) 51.0 % Lymphocytes (%) (Auto) 25.3 % Monocytes (%) (Auto) 22.6 % Eosinophils (%) (Auto) 0.4 % Basophils (%) (Auto) 0.4 % Neutrophils # (Auto) 7.98 K/uL Lymphocytes # (Auto) 3.97 K/uL Monocytes # (Auto) 3.54 K/uL Eosinophils # (Auto) 0.06 K/uL Basophils # (Auto) 0.07 K/uL RDW Standard Deviation 46.8 fL RDW Coefficient of Variation 14.6 % Immature Granulocyte % (Auto) 0.3 % Immature Granulocyte # (Auto) 0.05 K/uL [place] Bodies 1+ Acanthocytes 1+ Schistocytes 1+ Creatinine 0.64 mg/dl Est Creatinine Clear Calc Drug Dose 190.1 ml/min Estimated GFR () > 150.0 Estimated GFR (Non- 140.9 Assessment and Plan (1) URI (upper respiratory infection) Assessment & Plan: will check throat culture, on effective rx for strep, could check aso titer. spoke with primary, will repeat mono and lfts as well. No high risk sexual behavior reported, will check culture. blood cultures negative, if no bacterial infection suspected will likely stop abx soon. (2) Leukocytosis (3) Asplenia (4) Fever Continued [facility] stay due to: fever, abnormal vital signs, multiple IV medications needed Discharge planning: home
[2017-01-30 12:54] LABS: ANTI-STREP O SCR: 5YRS OR > POS IU/ml (<200 IU)
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
[2017-01-30 13:11] LABS: LYME DISEASE AB IGG NEG (NEG); LYME DISEASE AB IGM NEG (NEG)
[2017-01-30 13:12] LABS: ANTI-STREP O TITRE: 5YR OR > 800 IU/ml (<200 IU)
--- NOTE | 2017-01-30 14:47 | Pharmacy Progress Note ---
Pharmacy Abx Dose Short Note Date of Service Jan 30, 2017. Assessment & Plan Assessment 21 year old male receiving Vancomycin, Rocephin and Zithromax for treatment of possible pneumonia. Day # 4 of antimicrobial therapy. Pharmacy is consulted on vanc only. Item Value Date Time Vancomycin Level Trough 18.7 mcg/ml 01/30/17 1338 Vancomycin trough level of 18.7.1 mcg/mL is therapeutic. However he is currently being dosed at 28mg/kg and the trough is expected to rise. Goal trough for pneumonia is 15-20 mcg/mL. Blood cultures from 01/27 have no growth to date. ID would like to continue empiric therapy for now. Suspects sinusitis, ENT to evaluate patient today. Plan Vancomycin * Trough level of 18.7 mcg/mL is therapeutic. * Continue dose of 2,250 mg (28mg/kg) IV every 8 hours. * Trough level will be checked if therapy continues for an additional 48 hours. Pharmacy will continue to follow and will adjust dose/frequency as necessary. Thank you.
[2017-01-30] MEDS ORDERED: PRED20TA PO (14:58)
[2017-01-30] MEDS ORDERED: AMOX875T PO (14:58)
--- NOTE | 2017-01-30 14:58 | Discharge Instructions ---
Discharge Instructions Date of Service Jan 30, 2017. Admission Reason for Admission: Asplenia, Fever Discharge Discharge Diagnosis / Problem: Fever with pharyngitis Discharge Goals Goal(s): Decrease discomfort, Improve function Activity Recommendations Activity Limitations: resume your previous activity . Instructions / Follow-Up Instructions / Follow-Up You were admitted with sinus congestion and a fever and other upper respiratory symptoms. In the ER, you were noted to have an elevated white count, rapid flu was negative, chest x-ray was unremarkable and considering history of asplenia you were started on broad-spectrum antibiotics including vancomycin, Rocephin and azithromycin. Infectious disease was consulted and you also had a CT of your sinuses which revealed soft tissue occlusion, moderate hypertrophic right nasal turbinates with moderate mucosal thickening and mucous retention cyst. Recommendations: Pharyngitis: - Monospot 2 was negative, flu was negative, ASO titers for strep were high - You're recommended to use Augmentin 875 mg twice daily for about 10 days - Also use prednisone as directed for helping with the inflammation and swelling : Use 60 mg ( 3x20 mg tabs) for 2 days Use 40 mg ( 2x20 mg tabs) for 2 days Use 20 mg tabs for 2 days and stop - You may also use Flonase to help with congestion Please follow-up with your infectious disease doctor as scheduled. If you develop worsening fever, breathing difficulties please return to the ER Current Hospital Diet Patient's current hospital diet: Regular Diet Discharge Diet Recommended Diet: Regular Diet Pending Studies Studies pending at discharge: yes List of pending studies: EBV titers Medical Emergencies . Who to Call and When: Medical Emergencies: If at any time you feel your situation is an emergency, please call 911 immediately. . Non-Emergent Contact Non-Emergency issues call your: Primary Care Provider, Specialist (infectious disease ) Call Non-Emergent contact if: you have a fever . . "Provider Documentation" section prepared by Rosana Montiel. . VTE Core Measure Inpt VTE Proph given/why not?: Unfractionated heparin SQ Resident Tracking Resident Involvement: Resident Care Provided Care Provided: Adult Hospital Medicine
[2017-01-30] MEDS ORDERED: FLUT0.15 NAE (15:18)
[2017-01-30 15:25] VITALS: BP 134/78; PULSE 70; TEMP 36.7; O2SAT 95
[2017-01-30 15:36] VITALS: BP 134/78; PULSE 70; TEMP 36.7; O2SAT 95
--- NOTE | 2017-01-30 16:55 | Discharge Summary ---
Discharge Summary Date of Service Jan 30, 2017. (Rosana Montiel MD) Discharge Summary Admission Date: Jan 27, 2017 at 03:48 Discharge Date: Jan 30, 2017 Discharge Disposition: Home Principal Diagnosis: fever with pharyngitis Problems/Secondary Diagnoses: Asplenia. Consultations: Infectious disease (Rosana Montiel MD) Medication Reconciliation New Medications: Amoxicillin & Pot Clavulanate (Augmentin 875-125 mg) 1 Tab Tab 1 TAB PO BID for 10 Days, #20 TAB Fluticasone Propionate (Nasal) (Flonase Allergy Relief) 50 Mcg/Act Spr 1 INHA UMU QD for 7 Days Prednisone (Prednisone) 20 Mg Tab 20 MG PO UD, #12 TAB Discontinued Medications: Levofloxacin (Levaquin) 750 Mg Tab 750 MG PO DAILY for 10 Days Discharge Exam spiked a fever overnight. Continues to complain of soreness in the throat but denies any difficulty swallowing or difficulty breathing. Review of Systems: Constitutional: + fever, No chills Eyes: No worsening of vision ENT: No hearing loss Respiratory: No cough, No sputum, No shortness of breath, No dyspnea on exertion Cardiovascular: No chest pain, No orthopnea Abdomen: No pain, No nausea, No diarrhea Musculoskeletal: No joint pain Genitourinary - Male: No hematuria, No dysuria Neurologic: No memory loss Psychiatric: No depression symptoms Endocrine: No fatigue Hematologic / Lymphatic: + problem reported Physical Exam: General Appearance: WD/WN, no apparent distress Eyes: normal inspection ENT: hearing grossly normal, TMs normal, + tonsillar exudate (hypertrophic tonsils 4+), + muffled/hoarse voice, + pertinent finding Neck: supple Respiratory/Chest: lungs clear, normal breath sounds Cardiovascular: regular rate, rhythm Abdomen / GI: normal bowel sounds, non tender, soft Extremities: normal inspection, no pedal edema Neurologic/Psychiatric: alert, normal mood/affect, oriented x 3 Skin: normal color (Rosana Montiel MD) Hospital Course 21-year-old male with past medical history of asplenia presented to the ER with complaints of sinus congestion and fever which started 1 day prior to arrival. He had contacted his PCP had recommended using Levaquin. He presented to the ER with worsening symptoms and was found to be febrile and tachycardic, with leukocytosis. Initial chest x-ray was negative, flu swab was negative. He was started on vancomycin, ceftriaxone and azithromycin considering history of asplenia and infectious disease was consulted.His initial white blood cell count was 20 and it has improved to 15.8. His CRP was elevated in the ER at 8.7. His procalcitonin was negative. UA, mono screen, and flu swabs were negative. Blood cultures from the were also negative. He was started on oral prednisone [address] scan of the sinuses was ordered to rule out sinusitis and he was found to have soft tissue occlusion, moderate hypertrophic right nasal turbinate with moderate mucosal thickening. His mother wanted to take him home back to [place] and follow up with his infectious disease doctor. Repeat monoscreen was negative, EBV titers are currently pending, Lyme titers were negative, ASO titers returned positive at 800. He was discharged in stable condition with Augmentin 875/125 mg twice a day for 10 days along with prednisone to help with the swelling He was recommended to follow up with his infectious disease specialist as scheduled. Portions of the chart like laboratory work, CT report , infectious disease consult note were copied and given to the patient Total Time Spent: Less than 30 minutes This includes examination of the patient, discharge planning, medication reconciliation, and communication with other providers. (Rosana Montiel MD) Resident Physician Supervision Note: I was present with Dr. Montiel during the history and exam. I discussed the case with the resident and agree with the findings and plan as documented in the note. Upon exam, the patient has significant tonsillar hypertrophy with slight B/L off -white exudate. Right > left AC nodes. Mild but non obstructive nasal turbinate hypertrophy. ASO titer elevated; clinically, mono still a possibility despite the negative monospot given the short duration of symptoms. The mother provides additional history today, as the patient is being followed by ID in his hometown ([place] ) and he has already seen ENT for chronically enlarged tonsils. The mother and patient would like to pursue outpatient follow up in [place]. Agree with continued PO antibiotics and prednisone pending ID appointment. Documented By: Jatinder Yin Total Time Spent: Greater than 30 minutes Total time spent in this discharge was 40 minutes. (Jatinder Yin.,D.O.) Discharge Instructions Please refer to the electronic Patient Visit Report (Discharge Instructions) for additional information. (Rosana Montiel MD) Resident Tracking Resident Involvement: Resident Care Provided Care Provided: Adult Hospital Medicine (Rosana Montiel MD)
[2017-02-01 12:19] LABS: EBV EARLY ANTIGEN AB < 9.00 U/ML
== END 2017-01-30 17:15 | disposition home or self-care (01) | DRG 872 ==
LOC: C.EDB 02:46 → C.4E 03:48 → ENRESERV 04:00
PROVIDERS: ADMIT Internal Medicine; ATTEND Family Medicine
DX: A41.9 Sepsis, unspecified organism (principal); Q89.01 Asplenia (congenital); J03.90 Acute tonsillitis, unspecified; Z83.3 Family history of diabetes mellitus; Z82.49 Family history of ischemic heart disease and other diseases of the circulatory system

== ENCOUNTER 2018-06-25 15:46 | Inpatient (IN) ==
[2018-06-25] MEDS ORDERED: SODIUM CHLORIDE 0.9% 1000ML 2,000 ML IV ONE (16:12)
[2018-06-25] MEDS ORDERED: cefTRIAXone SODIUM 1,000 MG/50 ML BAG IV STA ×2 (16:13→17:04)
[2018-06-25] MEDS ORDERED: ACETAMINOPHEN 1,000 MG/100 ML VIAL IV STA (16:13)
--- NOTE | 2018-06-25 16:34 | XRay Report ---
XR chest 1V portable HISTORY: Atypical Chest Pain COMPARISON: Chest 01/27/2017. FINDINGS: The lungs are clear. Cardiac silhouette is normal in size. No pleural effusions. No pneumot horax. IMPRESSION: No acute process. Electronically signed by: Sánchez Manrique M.D. 06/25/2018 4:33 PM
[2018-06-25 16:39] LABS: Hematocrit (blood only) 41.1 % (42-52); Hemoglobin 14.5 g/dL (14.0-18.0); Mean Corpuscular Hgb Conc 35.3 g/dL (32-36); Mean Corpuscular Volume 88.6 fL (80-100); Mean Platelet Volume 9.7 fL (7.4-10.4); Platelet Count 397 K/uL (130-400); RDW Standard Deviation 45.6 fL (36.4-46.3); Red Blood Count 4.64 M/uL (4.7-6.1); White Blood Count 27.45 K/uL (4.8-10.8)
[2018-06-25 16:58] LABS: Basophils # (auto) 0.04 K/uL (0-0.2); Basophils % (auto) 0.1 %; Eosinophils # (auto) 0.11 K/uL (0-0.5); Eosinophils % (auto) 0.4 %; Immature Granulocytes # (auto) 0.14 K/uL (0.00-0.02); Immature Granulocytes % (auto) 0.5 %; Lymphocytes # (auto) 1.55 K/uL (1.2-3.4); Lymphocytes % (auto) 5.6 %; Monocytes # (auto) 2.22 K/uL (0.11-0.59); Monocytes % (auto) 8.1 %; Neutrophils # (auto) 23.39 K/uL (1.4-6.5); Neutrophils % (auto) 85.3 %
[2018-06-25 16:59] LABS: Albumin Level 3.9 gm/dl (3.4-5.0); BUN Creatinine Ratio 12.7 (10-20); Calcium 8.8 mg/dl (8.5-10.1); Creatinine Clr Calc Pharmacy 130.9 ml/min; Est GFR (African American) 127.2; Est GFR (Non-African American) 109.8; Magnesium 1.7 mg/dl (1.8-2.4); Potassium 3.4 mmol/L (3.5-5.1)
[2018-06-25 17:01] LABS: Bilirubin,Total 0.7 mg/dl (0.2-1); Globulin 4.1 gm/dl (2.5-4.0); Phosphorus 2.4 mg/dl (2.5-4.9)
[2018-06-25] MEDS ORDERED: VANCOMYCIN CONSULT ACTIVE PRN ×2 (17:04→19:57)
[2018-06-25] MEDS ORDERED: VANCOMYCIN HCL 1,750 MG in SODIUM CHLORIDE 0.9% 500 ML IV ONE (17:04)
[2018-06-25 17:27] LABS: Influenza A virus by PCR Neg for Influ A (Neg); Influenza B virus by PCR Neg for Influ B (Neg)
[2018-06-25] MEDS ORDERED: SODIUM CHLORIDE 0.9% 1000ML 1,000 ML IV ONE (18:34)
--- NOTE | 2018-06-25 18:41 | Emergency Department Note ---
Entered by Gaurav Mortensen acting as a scribe for Kiran Daniels MD History of Present Illness General Chief complaint: Flu Like Symptoms Stated complaint: 102 FEVER,CONGSTION,SORE THROAT,HEADACHE Time Seen by Provider: 06/25/18 16:03 Source: patient History of Present Illness Onset (ago): day(s) (last night) Location: chest (lungs) Pain Consistency: + other (persistent) Quality: + other (cough and congestion) Associated symptoms: + fever/chills (102 prior to arrival), + headaches and + other (sore throat, body aches); no nausea/vomiting The patient is a 22 year old male who presents to the Emergency Room with complaints of persistent coughing and congestion beginning last night. The patient also reports sore throat, body aches, headaches, and a fever of 102 prior to arrival. 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 He states that he did not take Tylenol or ibuprofen prior to arrival. He denies nausea, vomiting, or diarrhea. He states that he does not take any regular medications, although he has Levofloxacin for emergencies. The patient notes that his roommate had a similar but less severe cough recently. He reports that last year he was admitted to the hospital three times for IV antibiotics and recurrent strep throat. Home Medications Home Medications Medication Instructions Recorded Confirmed Type ascorbic acid (vitamin C) [Vitamin 125 mg PO DAILY 06/25/18 06/25/18 History C] Allergies Allergy/AdvReac Type Severity Reaction Status Date / Time No Known Allergies Allergy Unverified 01/27/17 03:10 Past Med/Surg History Medical History Asplenia Surgical History History of splenectomy History of tonsillectomy Family History Other Diabetes Hypertension Social History Preferred Language: Filipino Communication Ability: Effective [employer]ist Required: No Beliefs That Will Affect Care: None Current Living Situation: Other Current Living Situation Comment: apartment current occupational status: student Other Information That Helps Us Care for You: No Feels Safe at Home: Yes Safety Concerns: Feels Safe At This Time Smoking Status: Never smoker Hx Alcohol Use: Yes Hx Substance Use: No Review of Systems See HPI for pertinent positives & negatives. and A total of 10 systems reviewed and were otherwise negative Physical Exam Vital Signs Vital Signs - 24 hr 06/25/18 15:56 06/25/18 16:42 06/25/18 16:48 Temperature 37.5 C Temperature Source Oral Sepsis Recent Fever Within 48 Hours No Sepsis New/Unexplained Change in Mental Status No Sepsis Action Taken by Nursing No Action Required Pulse Rate 128 H Pulse Rate [Finger] 117 H Pulse Rhythm [Finger] Pulse Strength [Finger] Respiratory Rate 20 17 Respiratory Effort / Characteristics Non-Labored Spontaneous Respiratory Depth Normal Respiratory Pattern Regular Blood Pressure 124/74 Blood Pressure [Left Arm] 142/82 H Blood Pressure Mean 90 Blood Pressure Mean [Left Arm] 102 Blood Pressure Position Sitting Blood Pressure Position [Left Arm] Pulse Oximetry 96 96 98 Oxygen Delivery Method Room Air Room Air Room Air 06/25/18 17:50 06/25/18 19:44 06/25/18 21:25 Temperature 37.5 C Temperature Source Oral Sepsis Recent Fever Within 48 Hours Sepsis New/Unexplained Change in Mental Status Sepsis Action Taken by Nursing Pulse Rate 81 Pulse Rate [Finger] 100 H 97 H Pulse Rhythm [Finger] Regular Pulse Strength [Finger] Normal Respiratory Rate 22 17 18 Respiratory Effort / Characteristics Non-Labored Respiratory Depth Normal Respiratory Pattern Regular Blood Pressure 127/81 Blood Pressure [Left Arm] 137/74 142/86 H Blood Pressure Mean Blood Pressure Mean [Left Arm] 95 104 Blood Pressure Position Blood Pressure Position [Left Arm] Lying Pulse Oximetry 95 99 100 Oxygen Delivery Method Room Air Room Air Room Air 06/25/18 23:00 06/26/18 00:17 06/26/18 01:07 Temperature 38.1 C H 39.2 C H 37.9 C H Temperature Source Oral Oral Oral Sepsis Recent Fever Within 48 Hours Sepsis New/Unexplained Change in Mental Status Sepsis Action Taken by Nursing Pulse Rate Pulse Rate [Finger] 113 H Pulse Rhythm [Finger] Regular Pulse Strength [Finger] Respiratory Rate 18 Respiratory Effort / Characteristics Respiratory Depth Normal Respiratory Pattern Blood Pressure Blood Pressure [Left Arm] 130/85 Blood Pressure Mean Blood Pressure Mean [Left Arm] 100 Blood Pressure Position Blood Pressure Position [Left Arm] Lying Pulse Oximetry 98 Oxygen Delivery Method Room Air GENERAL: Awake, alert, realtively well-appearing, in no distress HENT: Normocephalic, atraumatic. Boggy nasal turbinates. Mucous membranes are dry. EYES: Normal conjunctiva. Sclera non-icteric. NECK: Supple. No nuchal rigidity. FROM. No JVD. RESPIRATORY: Clear to auscultation. CARDIAC: Tachycardic rate, normal rhythm. Extremities warm and well perfused. Pulses equal. ABDOMEN: Soft, non-distended. No tenderness to palpation. No rebound or guarding. No masses. RECTAL: Deferred. MUSCULOSKELETAL: Chest examination reveals no tenderness. The back is symmetrical on inspection without obvious abnormality. There is no CVA tenderness to palpation. No joint edema. LOWER EXTREMITIES: Calves are equal size bilaterally and non-tender. No edema. No discoloration. NEURO: Normal sensorium. No sensory or motor deficits noted. SKIN: No rash or jaundice noted. Course 1605: Past medical records reviewed. The patient was evaluated in room A3, and a complete history and physical examination were performed. 1711: I consulted Dr. Clark [facility] Hospitalist. The patient will be reevaluated for hospitalization. 1713: I updated the patient on results. Consultations Consultation #1: I consulted Dr. Clark [facility] Hospitalist. The patient will be reevaluated for hospitalization. Time: 17:11 Administered Medications Acetaminophen (Tylenol) 650 mg PO Q4H PRN PRN Reason: pain/fever Stop: 07/25/18 19:56 Last Admin: 06/25/18 23:38 Dose: 650 mg Documented by: [id number] Vancomycin HCl 1,500 mg/ (Sodium Chloride) 530 mls @ 200 mls/hr IV Q6H VICK Stop: 06/27/18 19:56 Last Admin: 06/26/18 00:15 Dose: 200 mls/hr Documented by: [id number] Sodium Chloride (Nss 1000ml) 1,000 mls @ 125 mls/hr IV .Q8H VICK Stop: 06/26/18 11:56 Last Infusion: 06/26/18 00:15 Dose: 0 mls/hr Documented by: [id number] Admin: 06/25/18 21:12 Dose: 125 mls/hr Documented by: [id number] Ondansetron HCl (Zofran) 4 mg IV Q6H PRN PRN Reason: Nausea Stop: 07/26/18 00:26 Last Admin: 06/26/18 01:15 Dose: 4 mg Documented by: [id number] Discontinued Medications Ceftriaxone Sodium (Rocephin) 1,000 mg in 50 mls @ 100 mls/hr IV NOW STA Stop: 06/25/18 16:42 Last Infusion: 06/25/18 17:04 Dose: 0 mls/hr Documented by: [id number] Admin: 06/25/18 16:37 Dose: 100 mls/hr Documented by: [id number] Acetaminophen (Ofirmev) 1,000 mg in 100 mls @ 400 mls/hr IV NOW STA Stop: 06/25/18 16:27 Last Infusion: 06/25/18 16:54 Dose: 0 mls/hr Documented by: [id number] Admin: 06/25/18 16:36 Dose: 400 mls/hr Documented by: [id number] Sodium Chloride (Nss 1000ml) 2,000 mls @ 999 mls/hr IV .Q2H1M ONE Stop: 06/25/18 18:12 Last Infusion: 06/25/18 18:40 Dose: 0 mls/hr Documented by: [id number] Admin: 06/25/18 16:37 Dose: 999 mls/hr Documented by: [id number] Vancomycin HCl 1,750 mg/ (Sodium Chloride) 535 mls @ 200 mls/hr IV NOW ONE Stop: 06/25/18 19:44 Last Infusion: 06/25/18 20:30 Dose: 0 mls/hr Documented by: [id number] Admin: 06/25/18 17:48 Dose: 200 mls/hr Documented by: [id number] Ceftriaxone Sodium (Rocephin) 1,000 mg in 50 mls @ 100 mls/hr IV NOW STA Stop: 06/25/18 17:33 Last Infusion: 06/25/18 17:50 Dose: 0 mls/hr Documented by: [id number] Admin: 06/25/18 17:17 Dose: 100 mls/hr Documented by: [id number] Sodium Chloride (Nss 1000ml) 1,000 mls @ 999 mls/hr IV .Q1H1M ONE Stop: 06/25/18 19:34 Last Infusion: 06/25/18 19:40 Dose: 0 mls/hr Documented by: [id number] Admin: 06/25/18 18:38 Dose: 999 mls/hr Documented by: [id number] Magnesium Sulfate/Dextrose (Magnesium Sulfate / D5w) 1 gm in 100 mls @ 100 mls/hr IV Q1H VICK Stop: 06/25/18 22:59 Last Infusion: 06/25/18 23:25 Dose: 0 mls/hr Documented by: [id number] Admin: 06/25/18 22:10 Dose: 100 mls/hr Documented by: [id number] Infusion: 06/25/18 22:10 Dose: 100 mls/hr Documented by: [id number] Admin: 06/25/18 21:12 Dose: 100 mls/hr Documented by: [id number] Potassium Phosphate 15 mmol/ (Sodium Chloride) 255 mls @ 88 mls/hr IV ONE ONE Stop: 06/25/18 23:53 Last Infusion: 06/26/18 00:13 Dose: 0 mls/hr Documented by: [id number] Admin: 06/25/18 21:12 Dose: 88 mls/hr Documented by: [id number] Potassium Phosphate (Potassium Phosphate Replace) 15 mmol IV NOW STA Stop: 06/25/18 19:58 Last Admin: 06/25/18 22:49 Dose: Not Given Documented by: [id number] Medical Decision Making Differential Diagnosis Differential diagnosis: Etiologies such as viral syndrome, otitis, pharyngitis, pneumonia, influenza, meningitis, urinary tract infection, sepsis, bacteremia, as well as others were entertained. Medical Records Attestation: I reviewed the patient's medical records. Home Medications Current Medication List: was personally reviewed by me Laboratory Data Attestation: I reviewed the patient's lab results. Result diagrams: 06/25/18 16:20 06/25/18 16:20 Lab Results 06/25/18 06/25/18 06/25/18 Range/Units 16:20 16:20 16:20 WBC 27.45 H (4.8-10.8) K/uL RBC 4.64 L (4.7-6.1) M/uL Hgb 14.5 (14.0-18.0) g/dL Hct 41.1 L (42-52) % MCV 88.6 (80-100) fL MCH 31.3 (25-34) pg MCHC 35.3 (32-36) g/dL RDW Std Deviation 45.6 (36.4-46.3) fL RDW Coeff of Laura 14.0 (11.5-14.5) % Plt Count 397 (130-400) K/uL MPV 9.7 (7.4-10.4) fL Immature Gran % (Auto) 0.5 % Neut % (Auto) 85.3 % Lymph % (Auto) 5.6 % Dane % (Auto) 8.1 % Eos % (Auto) 0.4 % Baso % (Auto) 0.1 % Immature Gran # (Auto) 0.14 H (0.00-0.02) K/uL Neut # (Auto) 23.39 H (1.4-6.5) K/uL Lymph # (Auto) 1.55 (1.2-3.4) K/uL Dane # (Auto) 2.22 H (0.11-0.59) K/uL Eos # (Auto) 0.11 (0-0.5) K/uL Baso # (Auto) 0.04 (0-0.2) K/uL Absolute Nucleated RBC 0.00 (0-0) K/uL Nucleated RBC % (auto) 0.0 % PT INR Sodium 137 (136-145) mmol/L Potassium 3.4 L (3.5-5.1) mmol/L Chloride 101 (98-107) mmol/L Carbon Dioxide 30 (21-32) mmol/L Anion Gap 6.0 (3-11) BUN 13 (7-18) mg/dl Creatinine 0.98 (0.6-1.4) mg/dl Est Cr Clr Drug Dosing 130.9 ml/min Est GFR ( Amer) 127.2 Est GFR (Non-Af Amer) 109.8 BUN/Creatinine Ratio 12.7 (10-20) Glucose 134 H (70-99) mg/dl Lactate 1.7 (0.4-2.0) mmol/L Calcium 8.8 (8.5-10.1) mg/dl Phosphorus 2.4 L (2.5-4.9) mg/dl Magnesium 1.7 L (1.8-2.4) mg/dl Total Bilirubin 0.7 (0.2-1) mg/dl AST 15 (15-37) U/L ALT 26 (12-78) U/L Alkaline Phosphatase 119 H (45-117) U/L Total Protein 8.0 (6.4-8.2) gm/dl Albumin 3.9 (3.4-5.0) gm/dl Globulin 4.1 H (2.5-4.0) gm/dl Albumin/Globulin Ratio 1.0 (0.9-2) Lipase 77 (73-393) U/L Procalcitonin (0-0.5) ng/ml Urine Color Urine Appearance (Clear) Urine pH (4.5-7.5) Ur Specific [place] (1.000-1.030) Urine Protein (Negative) Urine Glucose (UA) (Negative) Urine Ketones (Negative) Urine Blood (Negative) Urine Nitrite (Negative) Urine Bilirubin (Negative) Urine Urobilinogen (Negative) Ur Leukocyte Esterase (Negative) Influenza Type A (PCR) (Neg) Influenza Type B (PCR) (Neg) 06/25/18 06/25/18 06/25/18 Range/Units 16:20 16:35 16:40 WBC (4.8-10.8) K/uL RBC (4.7-6.1) M/uL Hgb (14.0-18.0) g/dL Hct (42-52) % MCV (80-100) fL MCH (25-34) pg MCHC (32-36) g/dL RDW Std Deviation (36.4-46.3) fL RDW Coeff of Laura (11.5-14.5) % Plt Count (130-400) K/uL MPV (7.4-10.4) fL Immature Gran % (Auto) % Neut % (Auto) % Lymph % (Auto) % Dane % (Auto) % Eos % (Auto) % Baso % (Auto) % Immature Gran # (Auto) (0.00-0.02) K/uL Neut # (Auto) (1.4-6.5) K/uL Lymph # (Auto) (1.2-3.4) K/uL Dane # (Auto) (0.11-0.59) K/uL Eos # (Auto) (0-0.5) K/uL Baso # (Auto) (0-0.2) K/uL Absolute Nucleated RBC (0-0) K/uL Nucleated RBC % (auto) % PT Cancelled INR Cancelled Sodium (136-145) mmol/L Potassium (3.5-5.1) mmol/L Chloride (98-107) mmol/L Carbon Dioxide (21-32) mmol/L Anion Gap (3-11) BUN (7-18) mg/dl Creatinine (0.6-1.4) mg/dl Est Cr Clr Drug Dosing ml/min Est GFR ( Amer) Est GFR (Non-Af Amer) BUN/Creatinine Ratio (10-20) Glucose (70-99) mg/dl Lactate (0.4-2.0) mmol/L Calcium (8.5-10.1) mg/dl Phosphorus (2.5-4.9) mg/dl Magnesium (1.8-2.4) mg/dl Total Bilirubin (0.2-1) mg/dl AST (15-37) U/L ALT (12-78) U/L Alkaline Phosphatase (45-117) U/L Total Protein (6.4-8.2) gm/dl Albumin (3.4-5.0) gm/dl Globulin (2.5-4.0) gm/dl Albumin/Globulin Ratio (0.9-2) Lipase (73-393) U/L Procalcitonin < 0.05 (0-0.5) ng/ml Urine Color Urine Appearance (Clear) Urine pH (4.5-7.5) Ur Specific [place] (1.000-1.030) Urine Protein (Negative) Urine Glucose (UA) (Negative) Urine Ketones (Negative) Urine Blood (Negative) Urine Nitrite (Negative) Urine Bilirubin (Negative) Urine Urobilinogen (Negative) Ur Leukocyte Esterase (Negative) Influenza Type A (PCR) Neg for Influ A (Neg) Influenza Type B (PCR) Neg for Influ B (Neg) 06/25/18 06/25/18 Range/Units 18:40 21:34 WBC (4.8-10.8) K/uL RBC (4.7-6.1) M/uL Hgb (14.0-18.0) g/dL Hct (42-52) % MCV (80-100) fL MCH (25-34) pg MCHC (32-36) g/dL RDW Std Deviation (36.4-46.3) fL RDW Coeff of Laura (11.5-14.5) % Plt Count (130-400) K/uL MPV (7.4-10.4) fL Immature Gran % (Auto) % Neut % (Auto) % Lymph % (Auto) % Dane % (Auto) % Eos % (Auto) % Baso % (Auto) % Immature Gran # (Auto) (0.00-0.02) K/uL Neut # (Auto) (1.4-6.5) K/uL Lymph # (Auto) (1.2-3.4) K/uL Dane # (Auto) (0.11-0.59) K/uL Eos # (Auto) (0-0.5) K/uL Baso # (Auto) (0-0.2) K/uL Absolute Nucleated RBC (0-0) K/uL Nucleated RBC % (auto) % PT 11.3 INR 1.1 Sodium (136-145) mmol/L Potassium (3.5-5.1) mmol/L Chloride (98-107) mmol/L Carbon Dioxide (21-32) mmol/L Anion Gap (3-11) BUN (7-18) mg/dl Creatinine (0.6-1.4) mg/dl Est Cr Clr Drug Dosing ml/min Est GFR ( Amer) Est GFR (Non-Af Amer) BUN/Creatinine Ratio (10-20) Glucose (70-99) mg/dl Lactate (0.4-2.0) mmol/L Calcium (8.5-10.1) mg/dl Phosphorus (2.5-4.9) mg/dl Magnesium (1.8-2.4) mg/dl Total Bilirubin (0.2-1) mg/dl AST (15-37) U/L ALT (12-78) U/L Alkaline Phosphatase (45-117) U/L Total Protein (6.4-8.2) gm/dl Albumin (3.4-5.0) gm/dl Globulin (2.5-4.0) gm/dl Albumin/Globulin Ratio (0.9-2) Lipase (73-393) U/L Procalcitonin (0-0.5) ng/ml Urine Color Yellow Urine Appearance Clear (Clear) Urine pH 7.5 (4.5-7.5) Ur Specific [place] 1.014 (1.000-1.030) Urine Protein Negative (Negative) Urine Glucose (UA) Negative (Negative) Urine Ketones Negative (Negative) Urine Blood Negative (Negative) Urine Nitrite Negative (Negative) Urine Bilirubin Negative (Negative) Urine Urobilinogen Negative (Negative) Ur Leukocyte Esterase Negative (Negative) Influenza Type A (PCR) (Neg) Influenza Type B (PCR) (Neg) Imaging Data Radiologist's Impression: Radiology results as stated below per my review and the radiologist's interpretation: XR chest 1V portable HISTORY: Atypical Chest Pain COMPARISON: Chest 01/27/2017. FINDINGS: The lungs are clear. Cardiac silhouette is normal in size. No pleural effusions. No pneumothorax. IMPRESSION: No acute process. Electronically signed by: Sánchez Manrique M.D. 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 Arrival the patient is in no acute distress, afebrile with temperature of 37.5, tachycardic to the 120s but vital signs otherwise stable. On exam the patient appears clinically dry. He has boggy nasal turbinates bilaterally. Exam is otherwise unremarkable. EKG demonstrates sinus tachycardia without overt ischemia. Chest x-ray negative for pneumonia. WBC 27K. With neutrophil predominance and left shift. Hemoglobin and platelets within normal limits. Chemistry without acidosis. Lactate within normal limits. Pro-calcitonin < 0.05. Given patient's significant leukocytosis in the setting of his asplenia, he was treated empirically with ceftriaxone and vancomycin after blood cultures were drawn. Flu negative. Given the patient's asplenia with fever of unknown origin reasonable to admit the patient for sepsis rule out. Case was discussed with, IZABEL Bailey hospitalist will evaluate the patient for admission. Impression & Plan Sepsis, Asplenia Critical Care Time I have personally spent greater than 35 minutes of critical care time in the direct management of this patient. This includes bedside care, interpretation of diagnostic studies, and testing, discussion with consultants, patient, and family members, and other required patient management activities. This 35 minutes is in excess of all separately billable procedures. Critical Care Time: Yes Total Critical Care Time: 35 Discharge Plan Visit Data *Final* Discharge Date/Time: 06/25/18 19:44 Chief Complaint: Flu Like Symptoms Stated Complaint: 102 FEVER,CONGSTION,SORE THROAT,HEADACHE ED Provider: Kiran Daniels Discharge Problem: Sepsis, Asplenia Patient Disposition: Admitted As Inpatient Discharge Instructions Interventions: ED Discharge Assessment Last Done: 06/25/18 19:44 The scribe's documentation has been prepared under my direction and personally reviewed by me in its entirety. I confirm that the note above accurately reflects all work, treatment, procedures, and medical decision making performed by me.
[2018-06-25 19:00] LABS: Appearance Urine Clear (Clear); Bilirubin Urine Negative (Negative); Blood Urine Negative (Negative); Color Urine Yellow; Glucose Urine UA Negative (Negative); Ketones Urine Negative (Negative); Leukocyte Esterase Urine Negative (Negative); Nitrite Urine Negative (Negative); Protein Urine Negative (Negative); Specific Gravity Urine 1.014 (1.000-1.030); Urobilinogen Urine Negative (Negative); pH Urine 7.5 (4.5-7.5)
--- NOTE | 2018-06-25 19:34 | History & Physical Report ---
Date of Service June 25, 2018 Assessment & Plan (1) Sepsis: Patient febrile, sinus tachycardic with marked neutrophil predominant leukocytosis, WBC=27.45. Complains of cough/congestion/sore throat and constitutional symptoms. Presently afebrile. Patient is asplenic d/t childhood trauma. Immunocompromised with increased susceptibility to encapsulated organisms, specifically S. pneumoniae, HiB and Neisseria meningitidis. Patient presently with supple neck, no meningismus. Low concern for meningitis at this time although condition may progress rapidly given asplenic state. -Admit to medical floor -Follow blood culture results -Check throat culture -Check peripheral blood smear -Check s. pneumoniae antigen -Vancomycin and Ceftriaxone for empiric antibiotic coverage -NSS at 125mL/hr x 2 liters -Consult ID - appreciate assistance with this case Present on Admission?: Yes (2) Asplenia: Secondary to trauma. Workup and management of sepsis as above. Present on Admission?: Yes (3) URI (upper respiratory infection): Patient with URI symptoms. Flu negative -Symptomatic management -Robitussin PRN F/E/N - NSS at 125mL/hr x 2 liters, patient with hypokalemia/hypophosphatemia/hypomagnesemia, will replete accordingly and repeat labs in AM, regular diet as tolerated Ppx - ambulation and IVF, patient at low risk for DVT Code - Full Dispo - Admit to medical floor Present on Admission?: Yes History of Present Illness Chief Complaint: flu-like symptoms Primary Care Provider: GRSI SUKI Patient is a 22yo C male [employer] student with history of asplenia d/t trauma presenting with fevers/chills/body aches as well as cough/congestion and sore throat. Patient states he began feeling febrile and achy yesterday. Symptoms progressed through today. He had fever of 102 as well as headache. States he had some neck and back pain that first began yesterday after laying in bed all day. Denies photophobia. No nausea/vomiting/diarrhea or constipation. Roommate with similar symptoms. Upon arrival to the ER he was found to be tachycardic at 128bpm. He was administered 2L NSS with improvement in HR to 100bpm. Blood pressure stable. Patient with asplenia from trauma at age 11. He has history of recurrent strep throat, s/p tonsillectomy 2 years ago. He has a prescription for rescue Levaquin which he has never needed. He follows with ID, Dr. Gris Edward, in [place] hometown. No recent travel. Has a dog at home but none currently. ER Course: Ofirmev 1gm, Ceftriaxone 2gm, Vancomycin, NSS x 2 L Allergies Allergy/AdvReac Type Severity Reaction Status Date / Time No Known Allergies Allergy Unverified 01/27/17 03:10 Home Medications Home Medications Medication Instructions Recorded Confirmed Type ascorbic acid (vitamin C) [Vitamin 125 mg PO DAILY 06/25/18 06/25/18 History C] Past Med/Surg History Medical History Asplenia Surgical History History of splenectomy History of tonsillectomy Social History Preferred Language: Serbian current occupational status: student Feels Safe at Home: Yes Smoking Status: Never smoker Hx Alcohol Use: Yes Hx Substance Use: No Review of Systems All systems reviewed & are unremarkable except as noted in HPI & below Physical Exam Vital Signs (Past 24 Hours): Last Vital Signs Temp 37.5 C 06/25/18 15:56 Pulse 100 H 06/25/18 17:50 Resp 22 06/25/18 17:50 BP 137/74 06/25/18 17:50 Pulse Ox 95 06/25/18 17:50 Physical Exam: General: patient resting comfortably, NAD, non-toxic in appearance, AA&O x 4 Skin: warm, dry, intact, no rashes or lesions HEENT: NC/AT, PERRL, EOMI, no photophobia, anicteric sclera, conjunctiva without injection, external ear normal to inspection and nontender, nares patent, moist mucus membranes, dentition intact, no oropharyngeal lesions, neck supple, trachea midline, no LAD, no thyromegaly, no JVD, no facial pain, TM pearly, no redness Heart: +S1/S2, regular, tachycardic, no m/r/g Lungs: equal air entry bilaterally, no rales/rhonchi/wheezes Abd: +BS, soft, NT/ND, no masses/organomegaly/ascites Ext: warm, 2+ pulses in UE/LE bilaterally, no clubbing/cyanosis or edema Neuro: nonfocal, patient AA&O x 4, speech intact, no facial droop, moving all extremities on command with equal strength 5/5, negative Kernig and Brudzinski sign Results & Data Laboratory Results Lab Results 06/25/18 06/25/18 06/25/18 Range/Units 16:20 16:20 16:20 WBC 27.45 H (4.8-10.8) K/uL RBC 4.64 L (4.7-6.1) M/uL Hgb 14.5 (14.0-18.0) g/dL Hct 41.1 L (42-52) % MCV 88.6 (80-100) fL MCH 31.3 (25-34) pg MCHC 35.3 (32-36) g/dL RDW Std Deviation 45.6 (36.4-46.3) fL RDW Coeff of Laura 14.0 (11.5-14.5) % Plt Count 397 (130-400) K/uL MPV 9.7 (7.4-10.4) fL Immature Gran % (Auto) 0.5 % Neut % (Auto) 85.3 % Lymph % (Auto) 5.6 % [place] % (Auto) 8.1 % Eos % (Auto) 0.4 % Baso % (Auto) 0.1 % Immature Gran # (Auto) 0.14 H (0.00-0.02) K/uL Neut # (Auto) 23.39 H (1.4-6.5) K/uL Lymph # (Auto) 1.55 (1.2-3.4) K/uL [place] # (Auto) 2.22 H (0.11-0.59) K/uL Eos # (Auto) 0.11 (0-0.5) K/uL Baso # (Auto) 0.04 (0-0.2) K/uL Sodium 137 (136-145) mmol/L Potassium 3.4 L (3.5-5.1) mmol/L Chloride 101 (98-107) mmol/L Carbon Dioxide 30 (21-32) mmol/L Anion Gap 6.0 (3-11) BUN 13 (7-18) mg/dl Creatinine 0.98 (0.6-1.4) mg/dl Est Cr Clr Drug Dosing 130.9 ml/min Est GFR ( Amer) 127.2 Est GFR (Non-Af Amer) 109.8 BUN/Creatinine Ratio 12.7 (10-20) Glucose 134 H (70-99) mg/dl Lactate 1.7 (0.4-2.0) mmol/L Calcium 8.8 (8.5-10.1) mg/dl Phosphorus 2.4 L (2.5-4.9) mg/dl Magnesium 1.7 L (1.8-2.4) mg/dl Total Bilirubin 0.7 (0.2-1) mg/dl AST 15 (15-37) U/L ALT 26 (12-78) U/L Alkaline Phosphatase 119 H (45-117) U/L Total Protein 8.0 (6.4-8.2) gm/dl Albumin 3.9 (3.4-5.0) gm/dl Globulin 4.1 H (2.5-4.0) gm/dl Albumin/Globulin Ratio 1.0 (0.9-2) Lipase 77 (73-393) U/L Procalcitonin (0-0.5) ng/ml Urine Color Urine Appearance (Clear) Urine pH (4.5-7.5) Ur Specific [place] (1.000-1.030) Urine Protein (Negative) Urine Glucose (UA) (Negative) Urine Ketones (Negative) Urine Blood (Negative) Urine Nitrite (Negative) Urine Bilirubin (Negative) Urine Urobilinogen (Negative) Ur Leukocyte Esterase (Negative) Influenza Type A (PCR) (Neg) Influenza Type B (PCR) (Neg) 06/25/18 06/25/18 06/25/18 Range/Units 16:20 16:40 18:40 WBC (4.8-10.8) K/uL RBC (4.7-6.1) M/uL Hgb (14.0-18.0) g/dL Hct (42-52) % MCV (80-100) fL MCH (25-34) pg MCHC (32-36) g/dL RDW Std Deviation (36.4-46.3) fL RDW Coeff of Laura (11.5-14.5) % Plt Count (130-400) K/uL MPV (7.4-10.4) fL Immature Gran % (Auto) % Neut % (Auto) % Lymph % (Auto) % [place] % (Auto) % Eos % (Auto) % Baso % (Auto) % Immature Gran # (Auto) (0.00-0.02) K/uL Neut # (Auto) (1.4-6.5) K/uL Lymph # (Auto) (1.2-3.4) K/uL [place] # (Auto) (0.11-0.59) K/uL Eos # (Auto) (0-0.5) K/uL Baso # (Auto) (0-0.2) K/uL Sodium (136-145) mmol/L Potassium (3.5-5.1) mmol/L Chloride (98-107) mmol/L Carbon Dioxide (21-32) mmol/L Anion Gap (3-11) BUN (7-18) mg/dl Creatinine (0.6-1.4) mg/dl Est Cr Clr Drug Dosing ml/min Est GFR ( Amer) Est GFR (Non-Af Amer) BUN/Creatinine Ratio (10-20) Glucose (70-99) mg/dl Lactate (0.4-2.0) mmol/L Calcium (8.5-10.1) mg/dl Phosphorus (2.5-4.9) mg/dl Magnesium (1.8-2.4) mg/dl Total Bilirubin (0.2-1) mg/dl AST (15-37) U/L ALT (12-78) U/L Alkaline Phosphatase (45-117) U/L Total Protein (6.4-8.2) gm/dl Albumin (3.4-5.0) gm/dl Globulin (2.5-4.0) gm/dl Albumin/Globulin Ratio (0.9-2) Lipase (73-393) U/L Procalcitonin < 0.05 (0-0.5) ng/ml Urine Color Yellow Urine Appearance Clear (Clear) Urine pH 7.5 (4.5-7.5) Ur Specific [place] 1.014 (1.000-1.030) Urine Protein Negative (Negative) Urine Glucose (UA) Negative (Negative) Urine Ketones Negative (Negative) Urine Blood Negative (Negative) Urine Nitrite Negative (Negative) Urine Bilirubin Negative (Negative) Urine Urobilinogen Negative (Negative) Ur Leukocyte Esterase Negative (Negative) Influenza Type A (PCR) Neg for Influ A (Neg) Influenza Type B (PCR) Neg for Influ B (Neg) Diagnostic Findings XR chest 1V portable HISTORY: Atypical Chest Pain COMPARISON: Chest 01/27/2017. FINDINGS: The lungs are clear. Cardiac silhouette is normal in size. No pleural effusions. No pneumothorax. IMPRESSION: No acute process. Electronically signed by: Sánchez Manrique M.D. 06/25/2018 4:33 PM Dictated: 06/25/18 1632 Transcribed: 06/25/18 1632 Code Status & VTE Plan Code Status full Critical Care Time Critical Care Time: No (1) Sepsis Sepsis type: sepsis due to unspecified organism Qualified Code(s): A41.9 - Sepsis, unspecified organism (2) URI (upper respiratory infection) URI type: unspecified URI Qualified Code(s): J06.9 - Acute upper respiratory infection, unspecified
[2018-06-25] MEDS ORDERED: POTASSIUM PHOS 3 MMOL/1 ML INFUSION IV STA (19:57)
[2018-06-25] MEDS ORDERED: POTASSIUM PHOSPHATE 15 MMOL in SODIUM CHLORIDE 0.9% 250 ML IV ONE (21:00)
[2018-06-25] MEDS: SODIUM CHLORIDE 0.9% 1000ML 1,000 ML IV SCH (21:12)
[2018-06-25] MEDS: MAGNESIUM SULFATE / D5W 1 GM/100 ML BAG IV SCH ×2 (21:12→22:10)
--- NOTE | 2018-06-25 21:51 | Pharmacy Report ---
Pharmacy Abx Initial Consult - Date of Service June 25, 2018 - Pharmacy Dosing Scope Date of Consult: 06/25/18 Consultation requested by: Dr. Clark Pharmacy is consulted to initiate vancomycin IV dosing therapy, order appropriate labs and adjust drug dose/frequency. - Subjective The patient is a 22 year old M admitted on 06/25/18 19:18. - Objective Height: 6 ft Weight: 82.1 kg Vital Signs (Past 12hrs): Vital Signs Temp Pulse Pulse Resp BP BP Pulse Ox 06/25/18 21:25 37.5 C 97 H 18 142/86 H 100 06/25/18 19:44 81 17 127/81 99 06/25/18 17:50 100 H 22 137/74 95 06/25/18 16:48 117 H 17 142/82 H 98 06/25/18 16:42 96 06/25/18 15:56 37.5 C 128 H 20 124/74 96 Lab Results (24hrs): Laboratory Tests (24 Hours) 06/25/18 06/25/18 06/25/18 16:20 16:20 16:20 WBC 27.45 H Neut # (Auto) 23.39 H Creatinine 0.98 Est Cr Clr Drug Dosing 130.9 Procalcitonin < 0.05 Micro Results: 06/25/18 16:35 Blood Culture - Pending Blood 06/25/18 16:20 Blood Culture - Pending Blood - Risk Factors for Resistance * Immunocompromised (asplenic) - Assessment & Plan Assessment 22 year old M admitted with fevers. WBC elevated w/ a left shift. Vancomycin and Rocephin are being initiated for sepsis (empiric - 48 hour stop date at this point), with high risk for severe infection d/t asplenia. Plan Vancomycin IV * Estimated PK Parameters: Vd 0.7 L/kg, Bassam 0.104 hr-1, t1/2 6.6 hr * Will plan to dose based upon previous patient-specific kinetic data, instead of population kinetics. Previously, patient ended up being on 28 mg/kg IV q8h to produce a therapeutic trough. I'm concerned about peak levels with dosing this high so instead will provide a lower dose but more frequently. * Loading dose: 1750 mg (21.3 mg/kg) * Maintenance dose: 1500 mg IV (18 mg/kg) every 6 hours * Goal trough level : 15 to 20 mcg/mL (we typically do not obtain levels with 48 hour dosing; however, q6h interval dosing warrants close f/u) * Trough level ordered for 06/26/18 prior to the 4th dose Rocephin * Not dosed by pharmacy but is appropriate Pharmacy will continue to follow and will adjust dose/frequency as necessary. Thank you.
[2018-06-25 22:07] LABS: INR 1.1 (0.9-1.1); Prothrombin Time 11.3 Seconds (9.0-12.0)
[2018-06-25] MEDS: ACETAMINOPHEN 325 MG TAB PO PRN (23:38)
[2018-06-26] MEDS: VANCOMYCIN HCL 1,500 MG in SODIUM CHLORIDE 0.9% 500 ML IV SCH ×4 (00:15→18:47)
[2018-06-26] MEDS ORDERED: ONDANSETRON INJ 2 MG/ML 2 ML VIAL IV PRN (00:27)
[2018-06-26] MEDS: ACETAMINOPHEN 325 MG TAB PO PRN ×2 (04:42→22:27)
[2018-06-26] MEDS: SODIUM CHLORIDE 0.9% 1000ML 1,000 ML IV SCH (05:27)
[2018-06-26 05:35] LABS: Hematocrit (blood only) 36.9 % (42-52); Hemoglobin 12.9 g/dL (14.0-18.0); Mean Corpuscular Volume 89.6 fL (80-100); Mean Platelet Volume 9.8 fL (7.4-10.4); Platelet Count 337 K/uL (130-400); RDW Coefficient of Variation 14.2 % (11.5-14.5); RDW Standard Deviation 46.6 fL (36.4-46.3); Red Blood Count 4.12 M/uL (4.7-6.1); White Blood Count 29.41 K/uL (4.8-10.8)
[2018-06-26 06:05] LABS: Alanine Aminotransferase 19 U/L (12-78); Albumin Level 3.1 gm/dl (3.4-5.0); Aspartate Aminotransferase 14 U/L (15-37); BUN Creatinine Ratio 9.2 (10-20); Bilirubin Direct 0.1 mg/dl (0-0.2); Blood Urea Nitrogen 7 mg/dl (7-18); Calcium 7.7 mg/dl (8.5-10.1); Carbon Dioxide 26 mmol/L (21-32); Chloride 109 mmol/L (98-107); Creatinine Clr Calc Pharmacy 175.7 ml/min; Est GFR (African American) > 150.0; Est GFR (Non-African American) 132.6; Glucose 93 mg/dl (70-99); Potassium 3.9 mmol/L (3.5-5.1); Sodium 139 mmol/L (136-145)
[2018-06-26 06:06] LABS: Basophils # (auto) 0.06 K/uL (0-0.2); Basophils % (auto) 0.2 %; Eosinophils # (auto) 0.11 K/uL (0-0.5); Eosinophils % (auto) 0.4 %; Howell-Jolly Bodies 1+; Immature Granulocytes # (auto) 0.17 K/uL (0.00-0.02); Immature Granulocytes % (auto) 0.6 %; Lymphocytes # (auto) 3.45 K/uL (1.2-3.4); Lymphocytes % (auto) 11.7 %; Monocytes # (auto) 3.46 K/uL (0.11-0.59); Monocytes % (auto) 11.8 %; Neutrophils # (auto) 22.16 K/uL (1.4-6.5); Neutrophils % (auto) 75.3 %; Pappenheimer Bodies 2+; Poikilocytosis Present; Toxic Vacuolation 1+
[2018-06-26 06:15] LABS: Alkaline Phosphatase 93 U/L (45-117); Bilirubin,Total 0.3 mg/dl (0.2-1); Phosphorus 2.7 mg/dl (2.5-4.9); Total Protein 6.5 gm/dl (6.4-8.2)
[2018-06-26] MEDS ORDERED: COUGH DROP (SUGAR FREE) LOZ 24 LOZ/1 BOX BUCCAL ONE (07:57)
[2018-06-26] MEDS: IBUPROFEN 800 MG TAB PO PRN ×2 (07:59→16:01)
[2018-06-26] MEDS ORDERED: ASCORBIC ACID 125 MG PO SCH (09:00)
--- NOTE | 2018-06-26 10:16 | Infectious Disease Consult ---
Date of Consultation June 26, 2018 Assessment & Plan (1) Sepsis: Patient with clinical picture of sepsis in the setting of previous splenectomy. Clinical picture seems most consistent with viral respiratory tract infection especially given low pro-calcitonin. However given risk for infection with encapsulated organisms, think it is prudent to continue antibiotics another 24 hours or so to ensure negative blood cultures. Will follow. (2) Asplenia: History of Present Illness Reason for Consultation: Asplenia, sepsis Attending Physician: Rosamaria Wright MD History of Present Illness 22-year-old male in prior good health with history of splenectomy because of trauma, who was in usual state of health until 1 day prior to admission when he noted the onset of fever with chills, sweats, myalgias and arthralgias along with sore throat, sinus congestion, and slight nonproductive cough. His roommate had been ill with slight cough the week prior. Also several other friends at [facility] ill with respiratory infection. Patient eventually came to the emergency department where he was found to be febrile and tachycardic with significant leukocytosis, and was started empirically on vancomycin and ceftriaxone. Patient feeling better this morning, fever is down, slightly less sore throat. Has negative rapid strep test, elevated streptococcal antibodies, EBV serology consistent with remote infection, and low pro-calcitonin. Chest x- ray, read by me, shows no evidence of pneumonia. Allergies Allergy/AdvReac Type Severity Reaction Status Date / Time No Known Allergies Allergy Unverified 01/27/17 03:10 Home Medications Home Medications Medication Instructions Recorded Confirmed Type ascorbic acid (vitamin C) [Vitamin 125 mg PO DAILY 06/25/18 06/25/18 History C] Patient History Medical History Asplenia Surgical History History of splenectomy History of tonsillectomy Family History Other Diabetes Hypertension Social History Preferred Language: Albanian Communication Ability: Effective Vascular Nurse Required: No Beliefs That Will Affect Care: None Current Living Situation: Other Current Living Situation Comment: apartment current occupational status: student Other Information That Helps Us Care for You: No Feels Safe at Home: Yes Safety Concerns: Feels Safe At This Time Smoking Status: Never smoker Hx Alcohol Use: Yes Hx Substance Use: No Review of Systems All systems were reviewed and are negative except as per HPI Physical Exam Vital Signs (Past 24 Hours): Last Vital Signs Temp 36.6 C 06/26/18 07:42 Pulse 86 06/26/18 07:42 Resp 15 06/26/18 07:42 BP 126/81 06/26/18 07:42 Pulse Ox 98 06/26/18 07:42 Constitutional: WD/WN, vitals as above comfortable; no acute distress Eyes: PERRL, conjunctivae normal, anicteric sclerae ENMT: external ear and nose normal, oropharynx normal Neck: trachea midline, no thyromegaly neck nontender Respiratory: normal respiratory effort, lungs clear to auscultation normal percussion; does not use accessory muscles Cardiovascular: Rate/Rhythm: regular rate and regular rhythm Heart Sounds: normal S1 and normal S2; no gallop, no murmur and no cardiac rub Vessels: normal peripheral pulses; no JVD Gastrointestinal (Abdomen): normal bowel sounds, soft, nontender, no hepatosplenomegaly Musculoskeletal: no cyanosis or clubbing, extremities motor strength 5/5 Spine: thoracic spine normal to inspection and lumbar spine normal to inspection; no cervical spinal tenderness Skin: no rashes, warm and dry normal turgor and + erythema (Facial); no lesions Neurologic: patellar DTR's 2+ bilat, sensation intact no focal motor deficits Psychiatric: A+Ox3, euthymic affect Orientation: cooperative Lymphatic: + cervical lymphadenopathy; no axillary lymphadenopathy and no inguinal lymphadenopathy Results & Data Laboratory Results Short CBC 06/25/18 06/26/18 Range/Units 16:20 05:16 WBC 27.45 H 29.41 H (4.8-10.8) K/uL Hgb 14.5 12.9 L (14.0-18.0) g/dL Hct 41.1 L 36.9 L (42-52) % Plt Count 397 337 (130-400) K/uL BMP 06/25/18 06/26/18 16:20 05:16 Sodium 137 139 Potassium 3.4 L 3.9 Chloride 101 109 H Carbon Dioxide 30 26 BUN 13 7 D Creatinine 0.98 0.73 Glucose 134 H 93 Calcium 8.8 7.7 L Liver Function 06/25/18 06/26/18 Range/Units 16:20 05:16 Total Bilirubin 0.7 0.3 (0.2-1) mg/dl Direct Bilirubin 0.1 (0-0.2) mg/dl AST 15 14 L (15-37) U/L ALT 26 19 (12-78) U/L Alkaline Phosphatase 119 H 93 (45-117) U/L Albumin 3.9 3.1 L (3.4-5.0) gm/dl Urine 06/25/18 Range/Units 18:40 Urine Color Yellow Urine Appearance Clear (Clear) Urine pH 7.5 (4.5-7.5) Ur Specific [place] 1.014 (1.000-1.030) Urine Protein Negative (Negative) Urine Glucose (UA) Negative (Negative) Diagnostic Findings Microbiology 06/26/18 05:30 Throat Group A Streptococcus Rapid Screen - Final Specimen negative for Group A Beta Strep by rapid method. Culture report to follow. XR chest 1V portable HISTORY: Atypical Chest Pain COMPARISON: Chest 01/27/2017. FINDINGS: The lungs are clear. Cardiac silhouette is normal in size. No pleural effusions. No pneumothorax. IMPRESSION: No acute process. Electronically signed by: Sánchez Manrique M.D. 06/25/2018 4:33 PM Dictated: 06/25/18 1632 Transcribed: 06/25/18 1632 (1) Sepsis Sepsis type: sepsis due to unspecified organism Qualified Code(s): A41.9 - Sepsis, unspecified organism
--- NOTE | 2018-06-26 11:21 | Hospitalist Progress Note ---
Date of Service June 26, 2018 Assessment & Plan (1) Sepsis: This patient is a 22-year-old male with a history of splenectomy status post trauma at age 11, who presents with fever, sinus tachycardia with marked neutrophil predominant leukocytosis, WBC=27.45. Complains of cough/congestion/sore throat and constitutional symptoms. No definite source of infection found but seems most likely viral at this point given recent sick contact with similar symptoms and his roommate and other friends. Flu swab is negative. Blood cultures are no growth to date, rapid strep test is negative and throat culture pending. WBC count went up again slightly today to 29, he was febrile on the night of . He is hemodynamically stable He reports being up-to-date on pneumococcal, meningococcal, and Haemophilus influenza B vaccinations Overall seems much improved clinically -Continue IV fluids so this bag is empty and then will stop, he is tolerating p.o. -Follow blood culture results -Follow throat culture result -Follow-up on results of peripheral blood smear -Check s. 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 Workup and management of sepsis as above. Up-to-date on vaccinations as above (3) URI (upper respiratory infection): Patient with URI symptoms. Flu negative -Symptomatic management -Robitussin PRN (4) DVT prophylaxis: Encouraged ambulation Disposition-likely discharge home tomorrow if cultures remain negative Subjective Patient feeling much better now. Reports some mild muscle aches but he thinks is from lying in bed. His sore throat is now resolved. He has a mild nonproductive cough. He does report some sinus drainage into his throat. Denies chest pain or shortness of breath, denies abdominal pain or nausea. Denies diarrhea. He is tolerating p.o. denies headache or neck pain. Review of Systems All systems reviewed & are unremarkable except as noted in HPI & below Physical Exam Vital Signs (Past 24 Hours): Last Vital Signs Temp 36.6 C 06/26/18 07:42 Pulse 86 06/26/18 07:42 Resp 15 06/26/18 07:42 BP 126/81 06/26/18 07:42 Pulse Ox 98 06/26/18 07:42 Constitutional: WD/WN, vitals as above Eyes: PERRL, conjunctivae normal, anicteric sclerae ENMT: external ear and nose normal, oropharynx normal (Except mild erythema in the posterior oropharynx) Neck: trachea midline, no thyromegaly normal visual inspection; no submandibular swelling Respiratory: normal respiratory effort, lungs clear to auscultation Cardiovascular: RRR, no murmur, no edema Gastrointestinal (Abdomen): normal bowel sounds, soft, nontender, no hepatosplenomegaly Musculoskeletal: Extremities: extremities normal to inspection; no cyanosis and no clubbing Skin: no rashes, warm and dry Neurologic: moves all extremities and awake; no focal motor deficits Psychiatric: A+Ox3, euthymic affect Lymphatic: no cervical lymphadenopathy Results & Data Laboratory Results 06/26/18 06/26/18 06/26/18 Range/Units 11:45 05:16 05:16 WBC 29.41 H (4.8-10.8) K/uL RBC 4.12 L (4.7-6.1) M/uL Hgb 12.9 L (14.0-18.0) g/dL Hct 36.9 L (42-52) % MCV 89.6 (80-100) fL MCH 31.3 (25-34) pg MCHC 35.0 (32-36) g/dL RDW Std Deviation 46.6 H (36.4-46.3) fL RDW Coeff of Laura 14.2 (11.5-14.5) % Plt Count 337 (130-400) K/uL MPV 9.8 (7.4-10.4) fL Immature Gran % (Auto) 0.6 % Neut % (Auto) 75.3 % Lymph % (Auto) 11.7 % Gove % (Auto) 11.8 % Eos % (Auto) 0.4 % Baso % (Auto) 0.2 % Immature Gran # (Auto) 0.17 H (0.00-0.02) K/uL Neut # (Auto) 22.16 H (1.4-6.5) K/uL Lymph # (Auto) 3.45 H (1.2-3.4) K/uL Gove # (Auto) 3.46 H (0.11-0.59) K/uL Eos # (Auto) 0.11 (0-0.5) K/uL Baso # (Auto) 0.06 (0-0.2) K/uL Absolute Nucleated RBC (0-0) K/uL Nucleated RBC % (auto) % Toxic Vacuolation 1+ Poikilocytosis Present Pappenheimer Bodies 2+ [place] Bodies 1+ Peripher Smr Path Cons PT INR Sodium 139 (136-145) mmol/L Potassium 3.9 (3.5-5.1) mmol/L Chloride 109 H (98-107) mmol/L Carbon Dioxide 26 (21-32) mmol/L Anion Gap 5.0 (3-11) BUN 7 D (7-18) mg/dl Creatinine 0.73 (0.6-1.4) mg/dl Est Cr Clr Drug Dosing 175.7 ml/min Est GFR ( Amer) > 150.0 Est GFR (Non-Af Amer) 132.6 BUN/Creatinine Ratio 9.2 L (10-20) Glucose 93 (70-99) mg/dl Lactate (0.4-2.0) mmol/L Calcium 7.7 L (8.5-10.1) mg/dl Phosphorus 2.7 (2.5-4.9) mg/dl Magnesium 2.0 (1.8-2.4) mg/dl Total Bilirubin 0.3 (0.2-1) mg/dl Direct Bilirubin 0.1 (0-0.2) mg/dl AST 14 L (15-37) U/L ALT 19 (12-78) U/L Alkaline Phosphatase 93 (45-117) U/L Total Protein 6.5 (6.4-8.2) gm/dl Albumin 3.1 L (3.4-5.0) gm/dl Globulin (2.5-4.0) gm/dl Albumin/Globulin Ratio (0.9-2) Lipase (73-393) U/L Procalcitonin (0-0.5) ng/ml Urine Color Urine Appearance (Clear) Urine pH (4.5-7.5) Ur Specific [place] (1.000-1.030) Urine Protein (Negative) Urine Glucose (UA) (Negative) Urine Ketones (Negative) Urine Blood (Negative) Urine Nitrite (Negative) Urine Bilirubin (Negative) Urine Urobilinogen (Negative) Ur Leukocyte Esterase (Negative) Vancomycin Trough Pending Influenza Type A (PCR) (Neg) Influenza Type B (PCR) (Neg) S.pneumoniae Type 1 IgG S.pneumoniae Type 3 IgG S.pneumoniae Type 4 IgG S.pneumoniae Type 5 IgG S.pneumoniae Type 8 IgG S.pneumoniae 9 (9N) IgG S.pneumon 12 (12F) IgG S.pneumoniae Typ 14 IgG S.pneumon 19 (19F) IgG S.pneumon 23 (23F) IgG S.pneumon 26 (6B) IgG S.pneumon 51 (7F) IgG S.pneumon 56 (18C) IgG S.pneumon 68 (9V) IgG 06/25/18 06/25/18 06/25/18 Range/Units 21:34 18:40 16:40 WBC (4.8-10.8) K/uL RBC (4.7-6.1) M/uL Hgb (14.0-18.0) g/dL Hct (42-52) % MCV (80-100) fL MCH (25-34) pg MCHC (32-36) g/dL RDW Std Deviation (36.4-46.3) fL RDW Coeff of Laura (11.5-14.5) % Plt Count (130-400) K/uL MPV (7.4-10.4) fL Immature Gran % (Auto) % Neut % (Auto) % Lymph % (Auto) % [place] % (Auto) % Eos % (Auto) % Baso % (Auto) % Immature Gran # (Auto) (0.00-0.02) K/uL Neut # (Auto) (1.4-6.5) K/uL Lymph # (Auto) (1.2-3.4) K/uL [place] # (Auto) (0.11-0.59) K/uL Eos # (Auto) (0-0.5) K/uL Baso # (Auto) (0-0.2) K/uL Absolute Nucleated RBC (0-0) K/uL Nucleated RBC % (auto) % Toxic Vacuolation Poikilocytosis Pappenheimer Bodies [place] Bodies Peripher Smr Path Cons PT 11.3 INR 1.1 Sodium (136-145) mmol/L Potassium (3.5-5.1) mmol/L Chloride (98-107) mmol/L Carbon Dioxide (21-32) mmol/L Anion Gap (3-11) BUN (7-18) mg/dl Creatinine (0.6-1.4) mg/dl Est Cr Clr Drug Dosing ml/min Est GFR ( Amer) Est GFR (Non-Af Amer) BUN/Creatinine Ratio (10-20) Glucose (70-99) mg/dl Lactate (0.4-2.0) mmol/L Calcium (8.5-10.1) mg/dl Phosphorus (2.5-4.9) mg/dl Magnesium (1.8-2.4) mg/dl Total Bilirubin (0.2-1) mg/dl Direct Bilirubin (0-0.2) mg/dl AST (15-37) U/L ALT (12-78) U/L Alkaline Phosphatase (45-117) U/L Total Protein (6.4-8.2) gm/dl Albumin (3.4-5.0) gm/dl Globulin (2.5-4.0) gm/dl Albumin/Globulin Ratio (0.9-2) Lipase (73-393) U/L Procalcitonin (0-0.5) ng/ml Urine Color Yellow Urine Appearance Clear (Clear) Urine pH 7.5 (4.5-7.5) Ur Specific [place] 1.014 (1.000-1.030) Urine Protein Negative (Negative) Urine Glucose (UA) Negative (Negative) Urine Ketones Negative (Negative) Urine Blood Negative (Negative) Urine Nitrite Negative (Negative) Urine Bilirubin Negative (Negative) Urine Urobilinogen Negative (Negative) Ur Leukocyte Esterase Negative (Negative) Vancomycin Trough Influenza Type A (PCR) Neg for Influ A (Neg) Influenza Type B (PCR) Neg for Influ B (Neg) S.pneumoniae Type 1 IgG S.pneumoniae Type 3 IgG S.pneumoniae Type 4 IgG S.pneumoniae Type 5 IgG S.pneumoniae Type 8 IgG S.pneumoniae 9 (9N) IgG S.pneumon 12 (12F) IgG S.pneumoniae Typ 14 IgG S.pneumon 19 (19F) IgG S.pneumon 23 (23F) IgG S.pneumon 26 (6B) IgG S.pneumon 51 (7F) IgG S.pneumon 56 (18C) IgG S.pneumon 68 (9V) IgG 06/25/18 06/25/1806/25/19 Range/Units 16:35 16:20 16:20 WBC (4.8-10.8) K/uL RBC (4.7-6.1) M/uL Hgb (14.0-18.0) g/dL Hct (42-52) % MCV (80-100) fL MCH (25-34) pg MCHC (32-36) g/dL RDW Std Deviation (36.4-46.3) fL RDW Coeff of Laura (11.5-14.5) % Plt Count (130-400) K/uL MPV (7.4-10.4) fL Immature Gran % (Auto) % Neut % (Auto) % Lymph % (Auto) % [place] % (Auto) % Eos % (Auto) % Baso % (Auto) % Immature Gran # (Auto) (0.00-0.02) K/uL Neut # (Auto) (1.4-6.5) K/uL Lymph # (Auto) (1.2-3.4) K/uL [place] # (Auto) (0.11-0.59) K/uL Eos # (Auto) (0-0.5) K/uL Baso # (Auto) (0-0.2) K/uL Absolute Nucleated RBC (0-0) K/uL Nucleated RBC % (auto) % Toxic Vacuolation Poikilocytosis Pappenheimer Bodies [place] Bodies Peripher Smr Path Cons PT Cancelled INR Cancelled Sodium (136-145) mmol/L Potassium (3.5-5.1) mmol/L Chloride (98-107) mmol/L Carbon Dioxide (21-32) mmol/L Anion Gap (3-11) BUN (7-18) mg/dl Creatinine (0.6-1.4) mg/dl Est Cr Clr Drug Dosing ml/min Est GFR ( Amer) Est GFR (Non-Af Amer) BUN/Creatinine Ratio (10-20) Glucose (70-99) mg/dl Lactate (0.4-2.0) mmol/L Calcium (8.5-10.1) mg/dl Phosphorus (2.5-4.9) mg/dl Magnesium (1.8-2.4) mg/dl Total Bilirubin (0.2-1) mg/dl Direct Bilirubin (0-0.2) mg/dl AST (15-37) U/L ALT (12-78) U/L Alkaline Phosphatase (45-117) U/L Total Protein (6.4-8.2) gm/dl Albumin (3.4-5.0) gm/dl Globulin (2.5-4.0) gm/dl Albumin/Globulin Ratio (0.9-2) Lipase (73-393) U/L Procalcitonin < 0.05 (0-0.5) ng/ml Urine Color Urine Appearance (Clear) Urine pH (4.5-7.5) Ur Specific [place] (1.000-1.030) Urine Protein (Negative) Urine Glucose (UA) (Negative) Urine Ketones (Negative) Urine Blood (Negative) Urine Nitrite (Negative) Urine Bilirubin (Negative) Urine Urobilinogen (Negative) Ur Leukocyte Esterase (Negative) Vancomycin Trough Influenza Type A (PCR) (Neg) Influenza Type B (PCR) (Neg) S.pneumoniae Type 1 IgG Pending S.pneumoniae Type 3 IgG Pending S.pneumoniae Type 4 IgG Pending S.pneumoniae Type 5 IgG Pending S.pneumoniae Type 8 IgG Pending S.pneumoniae 9 (9N) IgG Pending S.pneumon 12 (12F) IgG Pending S.pneumoniae Typ 14 IgG Pending S.pneumon 19 (19F) IgG Pending S.pneumon 23 (23F) IgG Pending S.pneumon 26 (6B) IgG Pending S.pneumon 51 (7F) IgG Pending S.pneumon 56 (18C) IgG Pending S.pneumon 68 (9V) IgG Pending 06/25/18 06/25/18 06/25/18 Range/Units 16:20 16:20 16:20 WBC 27.45 H (4.8-10.8) K/uL RBC 4.64 L (4.7-6.1) M/uL Hgb 14.5 (14.0-18.0) g/dL Hct 41.1 L (42-52) % MCV 88.6 (80-100) fL MCH 31.3 (25-34) pg MCHC 35.3 (32-36) g/dL RDW Std Deviation 45.6 (36.4-46.3) fL RDW Coeff of Laura 14.0 (11.5-14.5) % Plt Count 397 (130-400) K/uL MPV 9.7 (7.4-10.4) fL Immature Gran % (Auto) 0.5 % Neut % (Auto) 85.3 % Lymph % (Auto) 5.6 % [place] % (Auto) 8.1 % Eos % (Auto) 0.4 % Baso % (Auto) 0.1 % Immature Gran # (Auto) 0.14 H (0.00-0.02) K/uL Neut # (Auto) 23.39 H (1.4-6.5) K/uL Lymph # (Auto) 1.55 (1.2-3.4) K/uL [place] # (Auto) 2.22 H (0.11-0.59) K/uL Eos # (Auto) 0.11 (0-0.5) K/uL Baso # (Auto) 0.04 (0-0.2) K/uL Absolute Nucleated RBC 0.00 (0-0) K/uL Nucleated RBC % (auto) 0.0 % Toxic Vacuolation Poikilocytosis Pappenheimer Bodies [place] Bodies Peripher Smr Path Cons PT INR Sodium 137 (136-145) mmol/L Potassium 3.4 L (3.5-5.1) mmol/L Chloride 101 (98-107) mmol/L Carbon Dioxide 30 (21-32) mmol/L Anion Gap 6.0 (3-11) BUN 13 (7-18) mg/dl Creatinine 0.98 (0.6-1.4) mg/dl Est Cr Clr Drug Dosing 130.9 ml/min Est GFR ( Amer) 127.2 Est GFR (Non-Af Amer) 109.8 BUN/Creatinine Ratio 12.7 (10-20) Glucose 134 H (70-99) mg/dl Lactate 1.7 (0.4-2.0) mmol/L Calcium 8.8 (8.5-10.1) mg/dl Phosphorus 2.4 L (2.5-4.9) mg/dl Magnesium 1.7 L (1.8-2.4) mg/dl Total Bilirubin 0.7 (0.2-1) mg/dl Direct Bilirubin (0-0.2) mg/dl AST 15 (15-37) U/L ALT 26 (12-78) U/L Alkaline Phosphatase 119 H (45-117) U/L Total Protein 8.0 (6.4-8.2) gm/dl Albumin 3.9 (3.4-5.0) gm/dl Globulin 4.1 H (2.5-4.0) gm/dl Albumin/Globulin Ratio 1.0 (0.9-2) Lipase 77 (73-393) U/L Procalcitonin (0-0.5) ng/ml Urine Color Urine Appearance (Clear) Urine pH (4.5-7.5) Ur Specific [place] (1.000-1.030) Urine Protein (Negative) Urine Glucose (UA) (Negative) Urine Ketones (Negative) Urine Blood (Negative) Urine Nitrite (Negative) Urine Bilirubin (Negative) Urine Urobilinogen (Negative) Ur Leukocyte Esterase (Negative) Vancomycin Trough Influenza Type A (PCR) (Neg) Influenza Type B (PCR) (Neg) S.pneumoniae Type 1 IgG S.pneumoniae Type 3 IgG S.pneumoniae Type 4 IgG S.pneumoniae Type 5 IgG S.pneumoniae Type 8 IgG S.pneumoniae 9 (9N) IgG S.pneumon 12 (12F) IgG S.pneumoniae Typ 14 IgG S.pneumon 19 (19F) IgG S.pneumon 23 (23F) IgG S.pneumon 26 (6B) IgG S.pneumon 51 (7F) IgG S.pneumon 56 (18C) IgG S.pneumon 68 (9V) IgG Blood cultures no growth to date (1) URI (upper respiratory infection) URI type: unspecified URI Qualified Code(s): J06.9 - Acute upper respiratory infection, unspecified (2) Sepsis Sepsis type: sepsis due to unspecified organism Qualified Code(s): A41.9 - Sepsis, unspecified organism
[2018-06-26] MEDS ORDERED: VANCOMYCIN TROUGH ONE (11:30)
--- NOTE | 2018-06-26 13:01 | Pharmacy Report ---
Pharmacy Abx Dose Short Note - Date of Service June 26, 2018 - Assessment & Plan A/P Trough prior to Css 12.9mcg/mL. He will likely be between 15-20mcg/mL once vanco reaches steady state. Renal fxn looks good. Will order a trough tomorrow AM to ensure we are obtaining therapeutic lvls. Pharmacy will continue to follow and will adjust dose/frequency as necessary. Thank you.
[2018-06-26] MEDS ORDERED: cefTRIAXone SODIUM 2,000 MG in DEXTROSE 5% 50 ML IV SCH (16:00)
[2018-06-26] MEDS ORDERED: GUAIFENESIN/DEXTROM SYRUP 200MG/20MG 10ML UDC PO PRN (21:37)
[2018-06-27] MEDS: VANCOMYCIN HCL 1,500 MG in SODIUM CHLORIDE 0.9% 500 ML IV SCH ×3 (00:16→10:45)
[2018-06-27 03:04] VITALS: PULSE 77
[2018-06-27] MEDS ORDERED: VANCOMYCIN TROUGH ONE (05:30)
[2018-06-27] MEDS: ACETAMINOPHEN 325 MG TAB PO PRN (05:43)
[2018-06-27 06:10] LABS: Hematocrit (blood only) 36.7 % (42-52); Hemoglobin 12.4 g/dL (14.0-18.0); Mean Corpuscular Hgb Conc 33.8 g/dL (32-36); Mean Corpuscular Volume 91.1 fL (80-100); Mean Platelet Volume 10.1 fL (7.4-10.4); Platelet Count 338 K/uL (130-400); RDW Coefficient of Variation 14.5 % (11.5-14.5); RDW Standard Deviation 48.8 fL (36.4-46.3); Red Blood Count 4.03 M/uL (4.7-6.1); White Blood Count 23.04 K/uL (4.8-10.8)
[2018-06-27 06:18] LABS: Blood Urea Nitrogen 6 mg/dl (7-18); Calcium 8.3 mg/dl (8.5-10.1); Carbon Dioxide 27 mmol/L (21-32); Chloride 112 mmol/L (98-107); Creatinine Clr Calc Pharmacy 180.6 ml/min; Est GFR (African American) > 150.0; Est GFR (Non-African American) 134.1; Glucose 98 mg/dl (70-99); Potassium 3.9 mmol/L (3.5-5.1); Sodium 143 mmol/L (136-145)
[2018-06-27 06:41] LABS: Basophils # (auto) 0.05 K/uL (0-0.2); Basophils % (auto) 0.2 %; Echinocytes 1+; Eosinophils % (auto) 3.9 %; Howell-Jolly Bodies 1+; Immature Granulocytes # (auto) 0.08 K/uL (0.00-0.02); Immature Granulocytes % (auto) 0.3 %; Lymphocytes # (auto) 4.84 K/uL (1.2-3.4); Monocytes # (auto) 3.29 K/uL (0.11-0.59); Monocytes % (auto) 14.3 %; Neutrophils # (auto) 13.88 K/uL (1.4-6.5); Neutrophils % (auto) 60.3 %; Pappenheimer Bodies 2+; Toxic Vacuolation Occasional
[2018-06-27 07:28] VITALS: BP 116/72; TEMP 97.3; O2SAT 98
--- NOTE | 2018-06-27 10:22 | Discharge Summary ---
Date of Service June 27, 2018 Admission HPI Per Admitting Provider Patient is a 22yo C male [employer] student with history of asplenia d/t trauma presenting with fevers/chills/body aches as well as cough/congestion and sore throat. Patient states he began feeling febrile and achy yesterday. Symptoms progressed through today. He had fever of 102 as well as headache. States he had some neck and back pain that first began yesterday after laying in bed all day. Denies photophobia. No nausea/vomiting/diarrhea or constipation. Roommate with similar symptoms. Upon arrival to the ER he was found to be tachycardic at 128bpm. He was administered 2L NSS with improvement in HR to 100bpm. Blood pressure stable. Patient with asplenia from trauma at age 11. He has history of recurrent strep throat, s/p tonsillectomy 2 years ago. He has a prescription for rescue Levaquin which he has never needed. He follows with ID, Dr. Gris Edward, in [place] hometown. No recent travel. Has a dog at home but none currently. ER Course: Ofirmev 1gm, Ceftriaxone 2gm, Vancomycin, NSS x 2 L Principal Diagnosis Febrile illness, suspected viral syndrome, asplenia Discharge Exam Constitutional WD/WN, vitals as above Eyes PERRL, conjunctivae normal, anicteric sclerae ENMT external ear and nose normal, oropharynx normal (Except mild erythema in the posterior oropharynx) Neck trachea midline, no thyromegaly normal visual inspection; no submandibular swelling, negative Brudzinski's sign and negative Kernig's sign Respiratory normal respiratory effort, lungs clear to auscultation Cardiovascular RRR, no murmur, no edema Gastrointestinal (Abdomen) normal bowel sounds, soft, nontender, no hepatosplenomegaly Musculoskeletal Extremities: extremities normal to inspection; no cyanosis and no clubbing Skin no rashes, warm and dry Neurologic moves all extremities and awake; no focal motor deficits Psychiatric A+Ox3, euthymic affect Lymphatic no cervical lymphadenopathy Discharge Data Allergies Allergy/AdvReac Type Severity Reaction Status Date / Time No Known Allergies Allergy Unverified 01/27/17 03:10 Consultations Infectious Diseases Ordered Studies Chest [id number] Hospital Course (1) Sepsis: This patient is a 22-year-old male with a history of splenectomy status post trauma at age 11, who presents with fever, sinus tachycardia with marked neutrophil predominant leukocytosis, WBC=27.45. Complains of cough/congestion/sore throat and constitutional symptoms. No definite source of infection found but seems most likely viral at this point given recent sick contact with similar symptoms and his roommate and other friends. Flu swab is negative. Blood cultures are no growth to date, rapid strep test is negative and throat culture pending. However, given symptoms of cough and sinus congestion, strep throat is highly unlikely. WBC count peaked at 29 and came down to 23 on the day of discharge. Peripheral smear was unremarkable except for neutrophil predominant leukocytosis. He was febrile on the night of admission, but then was afebrile for over 24 hours prior to discharge Blood cultures remained no growth to date from his 48 hours. He was hemodynamically stable throughout the admission and was treated with IV fluids He reports being up-to-date on pneumococcal, meningococcal, and Haemophilus influenza B vaccinations Overall seems much improved clinically He was treated with empiric IV vancomycin and Ceftriaxone but this will be discontinued upon discharge and he does not need any further antibiotics -Consult ID - appreciate assistance with this case -Throat culture and final blood culture results as well as streptococcal pneumoniae titers should be followed after discharge by the PCP. 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 Workup and management of sepsis as above. Up-to-date on vaccinations as above (3) URI (upper respiratory infection): Patient with URI symptoms. Flu negative -Symptomatic management -Robitussin PRN (4) DVT prophylaxis: Encouraged ambulation Disposition-stable for discharge to home today Total Time Total Time Spent Total Time Spent (In Minutes): Greater than 30 minutes Total Time Includes: Examination of the Patient, Discharge Planning and Medication Reconciliation Discharge Plan Discharge Items Patient Disposition: Home - Self-Care Reason For Visit: SEPSIS Discharge Diagnosis: Febrile illness, likely viral syndrome Condition: Good Discharge Goals: Decrease discomfort, Diagnostic testing, Improve disease control and Therapeutic intervention Activity: Resume your previous activity Activity Comment: You may return to school after 06/29/18 Lifting: Gradually increase as tolerated Bathing: No limitations Exercise/Sports: Gradually increase as tolerated Driving/Machine Use: No limitations Non-emergency contact: Primary Care Provider and Specialist Call non-emergency contact if: you have any medication questions, your symptoms worsen, your pain is not controlled, your pain is worsening, your pain is unusual for you, your pain is concerning for you, you have a fever and your temperature is above 101 Follow-up/Referrals: Gris Edward MD [Primary Care Provider] - Diet: Regular Addtl Provider Instructions: You were admitted with a febrile illness. Your workup for bacterial infection was negative. Your chest x-ray did not show a pneumonia. Your blood cultures did not grow any bacteria. Your influenza testing was also negative. This is most likely a viral syndrome. Your rapid strep test was negative and your throat culture was still pending at the time of discharge, however strep throat does not seem likely. You can continue taking ibuprofen or acetaminophen as needed for sore throat. He can continue taking Robitussin-DM as needed for cough. Please follow-up with the primary care provider at [facility] as scheduled for you. Prescriptions: New acetaminophen [Mapap (acetaminophen)] 325 mg Tablet 650 mg PO Q4H PRN (Reason: pain) Qty: 30 RF: 0 ibuprofen 200 mg tablet 600 mg PO Q6H PRN (Reason: pain) Qty: 10 RF: 0 Robitussin Cough-Chest Kenneth DM 5-100 mg/5 mL Liquid 10 ml PO Q6H PRN (Reason: cough) Qty: 120 RF: 0 Continued ascorbic acid (vitamin C) [Vitamin C] 125 mg Tablet,Chewable 125 mg PO DAILY RF: 0 Stand-Alone Forms: [facility] Discharge Orders: Discharge Order (Routine); Ordered 06/27/18 Ordered By: Rosamaria Wright Admission Data Admit Date/Time: 06/25/18 19:18 Attending Provider: Rosamaria Wright Admit Provider: Sherri Clark Primary Care Provider: Gris Edward Other Providers: Sherri Clark ; Lion Rossi ; Alysia Miramontes Service: Medical Other Pending Studies at Discharge: Yes Studies:: Final blood cultures-no growth to date Throat culture-no growth to date Streptococcal pneumoniae antibody titers
[2018-06-28 19:05] LABS: Pneumococcal IgG Type 1 16.3; Pneumococcal IgG Type 12 (12F) 0.4; Pneumococcal IgG Type 14 9.8; Pneumococcal IgG Type 19 (19F) 5.9; Pneumococcal IgG Type 23 (23F) 2.5; Pneumococcal IgG Type 26 (6B) 1.5; Pneumococcal IgG Type 3 2.1; Pneumococcal IgG Type 4 0.9; Pneumococcal IgG Type 5 0.7; Pneumococcal IgG Type 51 (7F) 3.6; Pneumococcal IgG Type 68 (9V) 0.4; Pneumococcal IgG Type 8 3.1; Pneumococcal IgG Type 9 (9N) 0.7
== END 2018-06-27 13:30 | disposition home or self-care (01) | DRG 872 ==
LOC: ED 15:46 → 4E 19:18 → SUATTDRO 19:18 → 4E 19:44
DX: E83.42 Hypomagnesemia; J06.9 Acute upper respiratory infection, unspecified; Z90.81 Acquired absence of spleen; E83.39 Other disorders of phosphorus metabolism; E87.6 Hypokalemia; A41.9 Sepsis, unspecified organism